=== PATIENT | female | born 1950 | race Caucasian/White ===

== ENCOUNTER 2022-11-08 11:37 | Outpatient (REF) | payer MEDICARE, OTHER, SELFPAY ==
--- NOTE | ~2022-11-08 | CT_ITS ---
EXAMINATION: CT ABDOMEN AND PELVIS WITH CONTRAST CLINICAL INFORMATION: Hematuria. Rule out renal mass. COMPARISON: None available. TECHNIQUE: Multidetector volumetric images were obtained from the superior aspect of the liver through the pubic symphysis following IV administration 85 mL of Omnipaque 350 intravenous and oral contrast. Sagittal and coronal reformatted images were obtained on the technologist's workstation. Oral contrast: No This CT examination was performed using dose optimization techniques as appropriate, variously including the following: *Automated exposure control *Adjustment of mA and/or kV according to patient size (this includes techniques or standardized protocols for targeted exams where dose is matched to indication/reason for exam; i.e. extremities or head) *Use of iterative reconstruction technique DLP: 217 mGy-cm FINDINGS: LUNG BASES: The lung bases are clear. LIVER, GALLBLADDER, AND BILIARY TREE: The liver is normal in size, shape, and attenuation. There is a 3 mm hypodense lesion right hepatic lobe statistically a small cyst. No additional lesions seen. There is no intrahepatic ductal dilatation. The gallbladder is contracted. PANCREAS: Throughout the pancreas there are small hypodense lesions, question microcysts, measuring 2 mm and less. There is a larger 9 mm lesion in the head of the pancreas on axial image 28/3. SPLEEN: Unremarkable. ADRENAL GLANDS: Unremarkable. KIDNEYS AND URETERS: The kidneys are normal in size, shape, and attenuation. No hydronephrosis, hydroureter, or calculi seen. No perinephric stranding. There are bilateral multiple renal cysts. No enhancing renal mass seen. Bilateral extrarenal kidney pelvises are noted. BLADDER: The bladder is distended extending to the umbilicus. No bladder wall thickening seen. GASTROINTESTINAL TRACT: There is large amount of stool seen throughout the right colon. The small bowel loops are normal caliber. Appendix is not visualized. ABDOMINAL WALL: No significant hernia is appreciated. LYMPH NODES: Normal. VASCULAR: There is significant endoscopic calcification of abdominal aorta with aneurysmal dilatation of proximal abdominal aorta measuring 2.7 x 2.5 cm. There is posterior thrombus seen in the descending thoracic and proximal abdominal aorta. PELVIC VISCERA: The uterus is anteverted. There are multiloculated cystic mass with internal septation occupying the entire pelvis and extending into the mid abdomen almost up to the umbilicus. It measures 13.8 x 8.2 cm x 10 cm wide. 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 The mass obstructs the bladder outlet resulting in bladder distention. OSSEOUS STRUCTURES: No aggressive lytic or sclerotic process. There are degenerative disc changes L3-L4, L5-S1 disc levels with mild ventral spondylosis. There is dextroscoliosis of lumbar spine. CT/CT abdomen pelvis w IV con IMPRESSION: 1. Multiloculated cystic mass of pelvis are likely arising from the ovary. Differential diagnoses include serous or mucinous adenocarcinoma of the ovaries. Recommend MAINTENANCE MACHINE REPAIRER consultation. 2. Moderate constipation. Without obstruction. 3. Bilateral renal cysts. No radiopaque calculi. There are bilateral extra renal kidney pelvises. 4. Multiple small microcysts of the pancreas with a 9 mm cyst in the head of the pancreas. Recommend MRI pancreas with and without contrast. 5. Aneurysmal dilatation of proximal abdominal aorta and descending thoracic aorta. Results were called by phone to Dr. David Willett at 10:05 AM today Fleischner guidelines were followed.
--- NOTE | 2022-11-08 14:40 | CA_ITS ---
Transthoracic Echocardiogram Patient (Last, First, Middle): Kristan Wallace, Gender: Female Date of : 1950 Age: 72 Procedure Date: 11/08/2022 Procedure Type: Transthoracic Echocardiogram Location: OP Height: 149.86 cm Weight: 45.36 kg BSA: 1.37 m2 Heart Rate: 57 bpm Sql Report Writer: LOUISA Referring MD: Brennon Hernandez MD Paint Department Supervisor: Leopoldo Davidson MD Symptoms: [place] Study Quality: Adequate ECG Rhythm: Bradycardia Conclusions: - 1. Normal LV systolic function with LVEF of 55-60% with pseudonormal filling pattern 2. At least moderately dilated left atrium 3. Thickened mitral valve with restricted posterior leaflet with at least moderately severe mitral regurgitation which could be underestimated due to eccentric jet 4. Mildly elevated right ventricular systolic pressure 5. No gross pericardial effusion Findings Left Ventricle Normal left ventricular size, thickness, and systolic function. The visually estimated ejection fraction is between 55-60%. Spectral Doppler is indicative of a pseudonormal filling pattern. Peak GLS is -15.6%, which is reduced. Right Ventricle Normal right ventricular cavity size and systolic function. Atria The left atrium is moderately dilated. There is no evidence of interatrial shunt. The right atrium is likely dilated. Aortic Valve The aortic valve structure and function is likely normal. There is no aortic valve stenosis. There is no aortic valve regurgitation. Mitral Valve There is mild anterior and severe posterior mitral leaflet thickening. The posterior mitral leaflet has restricted mobility. There is moderate to severe mitral valve regurgitation. The mitral regurgitation jet is directed anteriorly. There is no mitral valve stenosis. Pulmonic Valve The pulmonic valve is likely normal. Tricuspid Valve Likely normal tricuspid valve structure and function. There is mild tricuspid valve regurgitation. Normal right atrial pressure. Mild pulmonary hypertension is present. Great Vessels All visible segments of the aorta are normal in size. The pulmonary artery was not well visualized. Venous The inferior vena cava is normal in size and collapses greater than 50% with inspiration. Pericardium/Pleural There is no evidence of pericardial effusion. Measurements 2D Linear Measurements IVSd: 1.11 0.6-0.9/0.6-1.0 cm LVIDd: 5.26 3.9-5.3/4.2-5.9 cm LVIDd Index: 3.84 2.4-3.2/2.2-3.1 cm/m2 LVIDs: 3.54 2.0-3.6 cm LVPWd: 0.57 0.7-1.1 cm LA Diam: 4.40 2.7-3.8/3.0-4.0 cm LAIDs Index: 3.21 1.5-2.3 cm/m2 LV Mass: 196.57 67-162/88-224 g LV Mass Index: 143.48 43-95/49-115 g/m2 LVOT Diam: 1.90 3.0+(-)1.3 cm 2D Systolic Function EF 4C: 60.00 >55% EF 2C: 55.80 >55% EF BiP: 57.70 >55% Mitral Valve MV VTI: 0.40 MV Pk Anselmo: 1.72 MV Mn Anselmo: 0.61 MV Pk Grad: 12.00 MV Mn Grad: 2.00 MV Pk E: 1.52 MV PK A: 0.67 MV Decel Time: 141.00 E/A: 2.30 E'Lateral: 4.35 E'Medial: 5.11 E/E' Med: 29.70 E/E' Lat: 34.90 PHT: 41.00 MVA PHT: 5.37 MVA Continuity: 0.80 Decel Forest: 10.78 MR Vol - PW Dopp: 79.80 MR VTI: 1.40 MR ERO: 57.00 MR Alias Anselmo: 0.39 MR RAD: 1.00 Aortic Valve AoV Pk Anselmo: 1.14 AoV Mn Anselmo: 0.69 AoV VTI: 0.19 AoV Pk Grad: 5.00 Aov Mn Grad: 2.00 SONIA Cont.VTI: 1.42 LVOT LVOT Pk Anselmo: 0.62 LVOT Mn Anselmo: 0.39 LVOT VTI: 0.11 LVOT Pk Grad: 2.00 LVOT Mn Grad: 1.00 LVOT Diam: 1.90 LVOT Area: 2.84 Diastolic Function MV Pk E: 1.52 MV Pk A: 0.67 E/A: 2.30 E'Medial: 5.11 E/E' Med: 29.70 E' Laterial: 4.35 E/E' Lat: 34.90 Right Ventricle TAPSE (mm): 18.20 TVS' Anselmo: 8.27 Tricuspid Valve TR Pk Anselmo: 3.11 TR Pk Grad: 39.00 RA Press: 3.00 RVSP: 42.00 Great Vessels Aorta Sinus of Valsalva: 2.80 2.0-3.5 cm Ao Asc: 3.00 2.1-3.4 cm Pulmonary Valve PV Pk Anselmo: 0.75 Peak PV Grad: 2.00 Updated in Other Vendor System with Status of Final Leopoldo Davidson MD electronically signed on 11/08/2022 4:50:09 PM with status of Final
[2022-11-08] MEDS: Barium Sulfate Oral (Berry) 450 ML ORAL.SUSP 900 ML PO (14:42)
[2022-11-08] MEDS: iohexoL 350 MG/ML 100 ML INFUS..BTL 85 ML IV (14:43)
== END 2022-11-08 11:38 | disposition home or self-care (01) ==
LOC: HO.CT 11:37
PROVIDERS: PCP Internal Medicine; Visit Provider Internal Medicine
DX: R01.1 Cardiac murmur, unspecified (principal); R10.12 Left upper quadrant pain
CPT/HCPCS: 74177; 93306; 93356; Q9967

== ENCOUNTER → 2022-11-20 09:55 | Outpatient (BNVA) | payer MEDICARE, OTHER, SELFPAY | PROVIDERS: PCP Internal Medicine; Referring Provider Internal Medicine; Visit Provider Internal Medicine Cardiovascular Disease | DX: R07.9 Chest pain, unspecified (principal); R09.89 Other specified symptoms and signs involving the circulatory and respiratory systems; I25.10 Atherosclerotic heart disease of native coronary artery without angina pectoris; I10 Essential (primary) hypertension; I34.0 Nonrheumatic mitral (valve) insufficiency; Z95.1 Presence of aortocoronary bypass graft; Z96.0 Presence of urogenital implants; Z98.890 Other specified postprocedural states | CPT/HCPCS: 93005; 99202 ==

== ENCOUNTER → 2022-12-17 08:38 | Outpatient (REF) | payer MEDICARE, OTHER, SELFPAY ==
--- NOTE | ~2022-12-17 | NM_ITS ---
EXERCISE MYOCARDIAL PERFUSION STUDY INDICATION: Coronary disease, history of bypass surgery, mitral regurgitation TECHNIQUE: The patient was brought in for an exercise perfusion study on 12/17/2022. Patient performed exercise as per Brock protocol and was injected 25 mCi of sestamibi once target heart rate was achieved. Images were obtained using the SPECT gamma camera interlaced with the gating device. Images were obtained in supine position. Resting perfusion study was performed on 12/19/2022. Patient was administered 25 mCi of sestamibi intravenously at rest. Images were then obtained in supine position. Images were processed with the software and compared side to side in short axis, horizontal long axis and vertical long axis views. Total DLP 73mGy-cm. FINDINGS: Raw images were reviewed. The stress perfusion study showed diminished tracer uptake along the inferior wall, adjacent parts of inferior septum and inferolateral wall. Mostly towards the basal part. No significant change with CT attenuation correction. The gated study shows normal LV systolic function with calculated LVEF of 67%. LV cavity is normal in size. The gated study shows reduced contractility in the basal part of inferior/inferolateral wall. Resting study shows diminished tracer uptake in the basal part of inferior/inferolateral wall as well as adjacent parts of inferior septum. No significant change with CT attenuation correction. Gating at rest reveals reduced contractility in the basal inferolateral wall and basal septum with LVEF of 68%. The findings are consistent with no reversible defects. Fixed perfusion defect in the basal part of inferior wall, inferolateral wall and adjacent inferior septum. NM/NM cardiolite stress test IMPRESSION: 1. Myocardial perfusion imaging study shows no ischemia. 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 2. Gated LVEF is 67% during stress and 68% during rest. 3. Transient ischemic dilatation not present. EKG component of the test reported separately.
--- NOTE | 2022-12-17 08:42 | CA_ITS ---
Acquisition Time: 2022-12-17 09:05:47 Total Exercise Time: 00:04:31 Test Indications: ABN ECHO Medications: SEE H Protocol: GRISELDA Max HR: 144 BPM 98% of Pred: 146 BPM Max BP: 132/084 mmHG Max Work Load: 5.8 METS Exercise stress test with exercise 4 min 31 sec of Griselda protocol, achieving > 85% MPHR, with moderate sob, no chest discomfort, with frequent PVCs, ventriculary bigeminy through most of test, occassional ventricular cuplets, with normotensive response to exercise, with nondiagnostic EKG due to baseline abnormality and difficult to assess in setting of frequent ventricular ectopy. Nuclear images pending. Test reviewed with Dr Davidson Referred By: Leopoldo Davidson Overread By: KURTIS NARANJO
== END ==
LOC: HO.CARD 08:38
PROVIDERS: PCP Internal Medicine; Visit Provider Internal Medicine Cardiovascular Disease
DX: R07.9 Chest pain, unspecified (principal); I25.10 Atherosclerotic heart disease of native coronary artery without angina pectoris
CPT/HCPCS: 78452; 93017; A9500; J0280; J2785

== ENCOUNTER 2023-04-15 11:23 | Outpatient (REF) | payer MEDICARE, OTHER, SELFPAY ==
--- NOTE | ~2023-04-15 | CT_ITS ---
EXAMINATION: CT CHEST WITH CONTRAST CLINICAL INFORMATION: Follow up septic pulmonary emboli. COMPARISON: None available. TECHNIQUE: Multidetector volumetric CT imaging of the chest was obtained after the administration of 85 mL of Omnipaque 350 intravenous contrast without immediate adverse reactions. Axial MIP volume rendering provided. Sagittal and coronal reformatted images were obtained. This CT examination was performed using dose optimization techniques as appropriate, variously including the following: *Automated exposure control *Adjustment of mA and/or kV according to patient size (this includes techniques or standardized protocols for targeted exams where dose is matched to indication/reason for exam; i.e. extremities or head) *Use of iterative reconstruction technique DLP: 140 mGy-cm. FINDINGS: LUNGS: Biapical pleural and parenchymal scarring. Severe emphysema. Mild focal bronchiectasis and peribronchial increased attenuation in the right upper lobe, axial image 105 series 7. Cystic and reticular changes in the posterior segment of the right upper lobe with more posteroinferior focal cyst wall thickening, for example axial image 134 series 7. This area measures approximately 2.5 cm in dimension. Right lower lobe bronchiectasis. Scarring or subsegmental atelectasis at the right lung base. MEDIASTINUM: Enlarged heart. No pericardial effusion. Post-CABG changes. Severe atherosclerotic disease of the thoracic aorta with plaque descending thoracic aorta. Aorta upper normal in size. No enlarged hilar or mediastinal lymph nodes. No pulmonary embolism. PLEURA: There is no pleural effusion. No pleural mass or thickening. Small right posterior diaphragmatic hernia containing fat. AXILLA: No lymphadenopathy. UPPER ABDOMEN: See abdominal and pelvic CT report from the same day. OSSEOUS STRUCTURES: Degenerative changes of the spine. CT/CT chest w IV con IMPRESSION: 1. No pulmonary embolus. Enlarged heart and post-CABG changes. Severe atherosclerotic disease with significant plaque in the descending thoracic aorta. 2. Severe emphysema. Focal bronchiectasis and increased peribronchial attenuation in the right upper lobe. Heterogeneous mixed cystic and reticular area in the right upper lobe measuring 2.[address] followup in 6-12 months recommended. Fleischner guidelines were followed.
--- NOTE | ~2023-04-15 | CT_ITS ---
EXAMINATION: CT ABDOMEN AND PELVIS WITH CONTRAST CLINICAL INFORMATION: Septic pulmonary emboli. Weight loss. COMPARISON: Previous CT of the abdomen and pelvis October 2022 TECHNIQUE: Multidetector volumetric images were obtained from the superior aspect of the liver through the pubic symphysis following administration 85 mL of Omnipaque 350 intravenous contrast. Sagittal and coronal reformatted images were obtained on the technologist's workstation. Oral contrast: Yes This CT examination was performed using dose optimization techniques as appropriate, variously including the following: *Automated exposure control *Adjustment of mA and/or kV according to patient size (this includes techniques or standardized protocols for targeted exams where dose is matched to indication/reason for exam; i.e. extremities or head) *Use of iterative reconstruction technique DLP: 217 mGy-cm FINDINGS: LUNG BASES: The visualized lung bases are unremarkable. LIVER, GALLBLADDER, AND BILIARY TREE: There is heterogeneous enhancement of the liver. Several small liver cysts largest measuring 4 mm in the right lobe. Contracted gallbladder. Probable gallstone. No biliary duct dilatation. PANCREAS: Multiple cysts in the pancreas. Largest measures 1 cm in the uncinate process of the head of the pancreas. This does not appear appreciably changed. The main pancreatic duct does not appear dilated. SPLEEN: Unremarkable. ADRENAL GLANDS: Unremarkable. KIDNEYS AND URETERS: Bilateral renal cysts. No imaging follow-up recommended. BLADDER: Not optimally distended. Question mild diffuse bladder wall thickening. GASTROINTESTINAL TRACT: Constipation. Small and large bowel is otherwise normal. The appendix is normal. ABDOMINAL WALL: No significant hernia is appreciated. LYMPH NODES: Normal. VASCULAR: Severe atherosclerotic disease with extensive plaque in the thoracic and upper abdominal aorta. Severe stenosis of the distal aorta. Stenoses of the bilateral common iliac arteries. 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 Moderate stenosis at the origin of the SMA. JAVI not seen. Right renal artery stent. I lateral abdominal wall collateral vessels. PELVIC VISCERA: Uterus has been removed. Cystic pelvic masses no longer seen. No ascites. OSSEOUS STRUCTURES: Degenerative changes of the spine and scoliosis. Mild degenerative changes at the hip joints. CT/CT abdomen pelvis w IV con IMPRESSION: Severe atherosclerotic disease. Significant plaque in the distal descending thoracic aorta and upper abdominal aorta. Severe stenosis of the distal abdominal aorta and bilateral common iliac arteries. 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 Constipation. Stable small liver and pancreatic cysts. Heterogeneous enhancement of the liver. Probable gallstones. Stable pancreatic cysts, largest measuring 1 cm in the head of the pancreas. Fleischner guidelines were followed.
[2023-04-15] MEDS: iohexoL 350 MG/ML 100 ML INFUS..BTL 85 ML IV (14:28)
== END 2023-04-15 11:24 | disposition home or self-care (01) ==
LOC: HO.CT 11:23
PROVIDERS: PCP Internal Medicine; Visit Provider Internal Medicine
DX: R63.4 Abnormal weight loss (principal); I26.90 Septic pulmonary embolism without acute cor pulmonale
CPT/HCPCS: 71260; 74177; Q9967

== ENCOUNTER 2023-04-18 14:22 | Outpatient (AMB) | payer MEDICARE, OTHER, SELFPAY ==
--- NOTE | 2023-04-18 14:23 | MHC.OFFVIS ---
Intake Vital Signs 04/18/23 14:34 Height 5 ft Weight 90 lb 8 oz BMI 17.7 BP 125/70 Blood Pressure Location Lt brachial Position Sitting Pulse 65 Intake Visit Reasons: lesion of the lip, poss bx ? CA Intake Note: Patient is seen in office for evaluation and treatment of a lip lesion, possible bx for CA. Patient c/o: onset one year, denies increase, pain, itchy, discharge, redness or other concerns Unified Communications Architect Required: No Accompanied by: Self / Same As Patient Allergies No Known Allergies Allergy (Verified 04/18/23 14:31) Medication List - Last Reconciled 04/19/23 by Bennie Seo MD alendronate 70 mg PO QWEEK amlodipine 10 mg PO DAILY apixaban (Eliquis) 2.5 mg PO BID atorvastatin 80 mg PO DAILY clopidogrel 75 mg PO DAILY enalapril maleate 20 mg PO DAILY furosemide 40 mg PO DAILY isosorbide mononitrate ER 30 mg PO DAILY metoprolol succinate ER 100 mg PO DAILY HPI HPI Comments History of Present Illness Details 73-year-old female patient presenting with a left upper lip skin lesion which is been present for approximately 1 year. She denies any injury to this location and feels the lesion is suddenly appeared. She denies any significant changes in the size of the lesion for the past year. She denies bleeding, discharge, pain from the site. She presents today to discuss possible biopsy. Patient has a history of coronary artery disease and previously underwent stent placement. She is currently on Eliquis. [facility] Medical History CAD (coronary artery disease) History of stent insertion of renal artery HTN (hypertension) Hyperlipidemia Surgical History History of cardiac cath History of total hysterectomy (12/2022) S/P CABG x 5 Family History Father CAD (coronary artery disease) Mother No problems noted. Sister Breast cancer Social History Alcohol intake: never Patient Tobacco Use Status: Former Tobacco user Review of Systems Const All systems reviewed & are unremarkable except as noted in HPI and below Card Denies chest pain and Reports dyspnea Resp Reports dyspnea Skin/Breast Reports as per HPI Physical Exam Vital Signs: Last Vital Signs Pulse 65 04/18/23 14:34 BP 125/70 04/18/23 14:34 BMI result Body Mass Index 17.7 Const General: cooperative and no acute distress Nutritional Appearance: thin Orientation/consciousness: patient oriented x3 HEENT Other: Head images: 1. 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 Lesion is suggestive of a squamous cell carcinoma therefore wide excision is recommended. After discussion of the procedure, risks, and alternatives, she consents to surgery. This will be scheduled at her earliest convenience. She reports that she is awaiting cataract surgery. Surgery should be performed soon after that. Ideally she would be off her anticoagulation prior to surgery to limit bleeding complications. Coding Level of Care Code New Pt Level 4 (99807) Diagnoses Skin lesion of face L98.9
[2023-04-18 14:34] VITALS: BP 125/70; PULSE 65; BMI 17.7
== END 2023-04-18 14:57 | disposition home or self-care (01) ==
PROVIDERS: PCP Internal Medicine; Referring Provider Internal Medicine; Visit Provider Surgery
DX: L98.9 Disorder of the skin and subcutaneous tissue, unspecified (principal)
CPT/HCPCS: 99204

== ENCOUNTER → 2023-04-18 14:22 | Outpatient (BNVA) | payer MEDICARE, OTHER, SELFPAY | PROVIDERS: PCP Internal Medicine; Referring Provider Internal Medicine; Visit Provider Surgery | DX: L98.9 Disorder of the skin and subcutaneous tissue, unspecified (principal) | CPT/HCPCS: 99202 ==

== ENCOUNTER 2023-11-25 10:26 | Outpatient (AMB) | payer MEDICARE, OTHER, SELFPAY ==
--- NOTE | 2023-11-25 10:32 | A.OFFVIS_ITS ---
Intake Vital Signs 11/25/23 10:35 Height 5 ft Weight 90 lb 6.232 oz BMI 17.7 BP 110/70 Blood Pressure Location Lt brachial Position Sitting Pulse 51 Intake Visit Reasons: 1 YR F/UP S/P ECHO Intake Note: 1 year follow-up with ekg has not had echo yet feeling good [facility] Nurse Required: No Allergies No Known Allergies Allergy (Verified 04/18/23 14:31) Medication List - Last Reconciled 11/25/23 by Leopoldo Davidson MD alendronate 70 mg PO QWEEK amlodipine 10 mg PO DAILY atorvastatin 80 mg PO DAILY enalapril maleate 20 mg PO DAILY furosemide 40 mg PO DAILY isosorbide mononitrate ER 30 mg PO DAILY metoprolol succinate ER 100 mg PO DAILY HPI HPI Comments History of Present Illness Details Maura comes for follow-up. She has been doing well from cardiac perspective. She underwent gynecologic surgery last year and is doing well from that perspective. Post surgery she developed a pulmonary embolism was treated for it for few months with oral anticoagulation therapy. Since then she has been off it but also off aspirin and Plavix therapy. She has currently not having any cardiac symptoms. Denies any exertional chest pain or shortness of breath. Denies any orthopnea, PND, leg edema, palpitations. Takes all her medications regularly. She maintains her activity of day-to-day living without any issues. No recent echocardiogram was performed. Denies any lightheadedness, syncope. [facility] Medical History CAD (coronary artery disease) History of stent insertion of renal artery HTN (hypertension) Hyperlipidemia Surgical History History of cardiac cath History of total hysterectomy (12/2022) S/P CABG x 5 Family History Father CAD (coronary artery disease) Mother No problems noted. Sister Breast cancer Social History Alcohol intake: never Patient Tobacco Use Status: Former Tobacco user Review of Systems Const Denies chills, Denies fatigue, Denies fever(s), Denies frequent falls, Denies weakness, Denies weight gain and Denies weight loss ENT Denies dizziness Card Denies chest pain, Denies leg edema, Denies lightheadedness, Denies palpitations, Denies dyspnea, Denies dyspnea on exertion, Denies orthopnea and Denies other (loss of consciousness) Resp Denies cough, Denies dyspnea and Denies dyspnea on exertion GI Denies hematochezia and Denies change in stool character Musc Denies abnormal gait, Denies muscle weakness, Denies numbness, Denies radiating pain into limb and Denies tingling Neuro Denies Abnormal speech present, Denies abnormal gait, Denies dizziness, Denies frequent falls, Denies numbness, Denies tingling and Denies weakness Endo Denies fatigue and Denies palpitations Physical Exam Vital Signs: Last Vital Signs Pulse 51 11/25/23 10:35 BP 110/70 11/25/23 10:35 BMI result Body Mass Index 17.7 Const General: cooperative, comfortable, no acute distress, alert, awake, Physically active and well groomed Nutritional Appearance: thin Orientation/consciousness: patient oriented x3 Limitations: no limitations HEENT Head: Yes normocephalic and Yes atraumatic Neck Neck: Yes trachea midline, Yes supple and Yes no JVD Carotids: bruit bilateral Resp Effort & Inspection: normal respiratory effort Auscultation: clear to auscultation bilaterally and diminished lung sounds Cardio Jugular venous distension: no JVD Palpation: normal PMI Rate: regular rate Rhythm: abnormal rhythm with ectopic beats Heart sounds: S1 normal heart sound present, S2 normal heart sound present, no click, no gallops and Murmur heart sound present systolic holo, harsh and other (Throughout) Peripheral pulses: other (Diminished bilateral dorsalis pedis) GI Auscultation: normal bowel sounds Skin General skin exam: no rashes or lesions noted Neuro General: patient oriented x3 and no focal motor deficits Speech: No Abnormal speech present Extrem General: Yes no clubbing, cyanosis or edema Office Procedures EKG Details: EKG shows sinus bradycardia 51 beats per minute with left atrial enlargement with incomplete right bundle-branch block with left ventricular hypertrophy with repolarization abnormality [id number], Complete Assessment & Plan Assessment & Plan (1) CAD (coronary artery disease): Comment: Asymptomatic leading to coronary artery bypass grafting Code(s): I25.10 - Atherosclerotic heart disease of [place] coronary artery without angina pectoris Plan: CAD with remote coronary bypass grafting with myocardial perfusion imaging last year showing no evidence of ischemia. This carries good prognosis. Recheck in 4 years' time. Continue aggressive medical therapy. Aspirin is absolutely essential and this was discussed with her. Restart low-dose aspirin therapy. Continue aggressive vascular risk factor modification. Currently on atorvastatin 80 mg daily and goal LDL should be closer to 60 mg/dL. Will obtain lab work from your office. Blood pressure is currently well optimized advised to monitor blood pressure at home maintain a log. Goal blood pressure less than 130/80. Advised to call me with any new symptoms of angina or heart failure. (2) Mitral regurgitation: Code(s): I34.0 - Nonrheumatic mitral (valve) insufficiency Plan: Mitral regurgitation which appears clinically moderately severe to severe. She has having no symptoms related to it. Importance of annual echocardiogram to evaluate for LV size and systolic function should be pursued as well as to evaluate for evidence of development of pulmonary hypertension. This was discussed with her. Will schedule in near future. Aspirin therapy as above. Currently no interventions required except for aggressive medical therapy including vasodilators therapy as prescribed. Will follow up in the clinic in 1 year's time, sooner p.r.n.. Thank you for allowing me to partake in her care Orders: Orders CA echo transthoracic complete Today I34.0 - Nonrheumatic mitral (valve) insufficiency Medications: New aspirin (Ecotrin Low Strength) 81 mg PO DAILY 30 tabs 5RF Coding Level of Care Code Est Pt Level 4 (46262) Diagnoses CAD (coronary artery disease) I25.10 Mitral regurgitation I34.0 CPT Codes EKG - CPT: 38383-[id number], Complete ([id number])
[2023-11-25 10:35] VITALS: BP 110/70; PULSE 51; BMI 17.7
== END 2023-11-25 11:00 | disposition home or self-care (01) ==
PROVIDERS: Visit Provider Internal Medicine Cardiovascular Disease
DX: I25.10 Atherosclerotic heart disease of native coronary artery without angina pectoris (principal); I34.0 Nonrheumatic mitral (valve) insufficiency
CPT/HCPCS: 93010; 99214

== ENCOUNTER → 2023-11-25 10:26 | Outpatient (BNVA) | payer MEDICARE, OTHER, SELFPAY | PROVIDERS: Visit Provider Internal Medicine Cardiovascular Disease | DX: I25.10 Atherosclerotic heart disease of native coronary artery without angina pectoris (principal); I34.0 Nonrheumatic mitral (valve) insufficiency | CPT/HCPCS: 93005; 99212 ==

== ENCOUNTER → 2023-12-17 14:49 | Outpatient (REF) | payer MEDICARE, OTHER, SELFPAY ==
--- NOTE | 2023-12-17 14:51 | CA_ITS ---
Transthoracic Echocardiogram Patient (Last, First, Middle): Maura Wallace, Gender: Female Date of : 1950 Age: 73 Procedure Date: 12/17/2023 Procedure Type: Transthoracic Echocardiogram Location: OP Height: 152.4 cm Weight: 41.28 kg BSA: 1.34 m2 Heart Rate: bpm BP: 100 / 66 mmHg Component Technician: HAYLEE Referring MD: Leopoldo Davidson MD Symptoms: I34.0 - Nonrheumatic mitral (valve) insufficiency Study Quality: Adequate ECG Rhythm: Sinus Conclusions: - The left ventricular systolic function is normal. The calculated ejection fraction is 65% by biplane method. - The inferolateral wall is akinetic. - Posterior leaflet appears to have some restriction and also prolapsing. Moderate to severe mitral regurgitation. Findings Left Ventricle Normal left ventricular cavity size. The left ventricular systolic function is normal. The calculated ejection fraction is 65% by biplane method. There is no evidence of regional wall motion abnormalities. There is mild septal asymmetric hypertrophy. LV peak GLS -20.6%. Wall Motion Rest Echo Findings The inferolateral wall is akinetic. Right Ventricle Normal right ventricular cavity size. There is low normal right ventricular systolic function. Atria The left atrium is severely dilated. The right atrium is mildly dilated. Aortic Valve There is a normal trileaflet aortic valve. There is no aortic valve stenosis. There is no aortic valve regurgitation. Mitral Valve There is mild mitral annular calcification. There is no mitral valve stenosis. Posterior leaflet appears to have some restriction and also prolapsing. Moderate to severe mitral regurgitation. Pulmonic Valve The pulmonic valve is likely normal. Tricuspid Valve There is mild tricuspid valve regurgitation. Mild pulmonary hypertension is present. Great Vessels The asc aorta is normal in size. Large plaque is seen in the sino tubular ridge. Venous The inferior vena cava is mildly dilated and collapses greater than 50% with inspiration. Pericardium/Pleural There is no evidence of pericardial effusion. Prior Study Comparison No significant change compared to prior study dated: 11/08/2022. (wall motion findings seen in prior images). Measurements 2D Linear Measurements IVSd: 1.08 0.6-0.9/0.6-1.0 cm LVIDd: 4.75 3.9-5.3/4.2-5.9 cm LVIDd Index: 3.54 2.4-3.2/2.2-3.1 cm/m2 LVIDs: 3.16 2.0-3.6 cm LVPWd: 0.72 0.7-1.1 cm LA Diam: 3.70 2.7-3.8/3.0-4.0 cm LAIDs Index: 2.76 1.5-2.3 cm/m2 LV Mass: 181.19 67-162/88-224 g LV Mass Index: 135.22 43-95/49-115 g/m2 LVOT Diam: 1.90 3.0+(-)1.3 cm 2D Systolic Function EF 4C: 59.10 >55% EF 2C: 69.80 >55% EF BiP: 64.80 >55% Mitral Valve MV VTI: 0.49 MV Pk Anselmo: 1.58 MV Mn Anselmo: 0.63 MV Pk Grad: 10.00 MV Mn Grad: 2.00 MV Pk E: 1.49 MV PK A: 0.86 MV Decel Time: 200.00 E/A: 1.70 E'Lateral: 8.59 E'Medial: 6.09 E/E' Med: 24.50 E/E' Lat: 17.30 PHT: 58.00 MVA PHT: 3.79 MVA Continuity: 1.11 Decel Bibb: 7.47 MR Vol - PW Dopp: 109.20 MR VTI: 1.40 MR ERO: 78.00 MR Alias Anselmo: 0.39 MR RAD: 1.20 Aortic Valve AoV Pk Anselmo: 1.22 AoV Mn Anselmo: 0.84 AoV VTI: 0.25 AoV Pk Grad: 6.00 Aov Mn Grad: 3.00 SONIA Cont.VTI: 2.21 LVOT LVOT Pk Anselmo: 0.89 LVOT Mn Anselmo: 0.55 LVOT VTI: 0.19 LVOT Pk Grad: 3.00 LVOT Mn Grad: 1.00 LVOT Diam: 1.90 LVOT Area: 2.84 Diastolic Function MV Pk E: 1.49 MV Pk A: 0.86 E/A: 1.70 E'Medial: 6.09 E/E' Med: 24.50 E' Laterial: 8.59 E/E' Lat: 17.30 Right Ventricle TAPSE (mm): 17.90 TVS' Anselmo: 9.36 Tricuspid Valve TR Pk Anselmo: 2.90 TR Pk Grad: 34.00 RA Press: 8.00 RVSP: 42.00 Great Vessels Aorta Sinus of Valsalva: 3.00 2.0-3.5 cm Ao Asc: 3.10 2.1-3.4 cm Updated in Other Vendor System with Status of Final Jose Antonio Talbert MD electronically signed on 12/19/2023 4:51:36 PM with status of Final
== END ==
LOC: HO.CARD 14:49
PROVIDERS: PCP Internal Medicine; Visit Provider Internal Medicine Cardiovascular Disease
DX: I34.0 Nonrheumatic mitral (valve) insufficiency (principal)
CPT/HCPCS: 93306; 93356

== ENCOUNTER → 2023-12-17 14:51 | Outpatient (BNV) | payer MEDICARE, OTHER, SELFPAY | PROVIDERS: PCP Internal Medicine; Visit Provider Internal Medicine | DX: I34.1 Nonrheumatic mitral (valve) prolapse (principal); I34.0 Nonrheumatic mitral (valve) insufficiency; I34.81 Nonrheumatic mitral (valve) annulus calcification; I36.1 Nonrheumatic tricuspid (valve) insufficiency | CPT/HCPCS: 93306; 93356 ==

== ENCOUNTER 2024-05-15 10:47 | Outpatient (AMB) | payer MEDICARE, OTHER, SELFPAY ==
--- NOTE | 2024-05-15 10:50 | A.OFFVIS_ITS ---
Vital Signs 3 05/15/24 10:58 Height 5 ft Weight 87 lb BMI 17.0 BP 124/69 Blood Pressure Location Lt brachial Position Sitting Pulse 61 Intake Visit Reasons: lip lesion Intake Note: Patient is seen in office for follow up visit, following lip lesion. Pt c/o: is here to discuss, lip lesion removal, was not able to schedule sooner due to hysterectomy, cataract and dental surgery L>OV:04/18/23 [employer] Required: No Accompanied by: Self / Same As Patient Allergies No Known Allergies Allergy (Verified 05/15/24 10:51) HPI Comments Details: 74-year-old female patient returning for re-evaluation of a left upper lip skin lesion. She was previously evaluated on 04/18/2023 at which time the lesion has been present for a proximally 1 year. Since this time she has had multiple surgeries including hysterectomy, cataract surgery and dental surgery. She returns today for rediscussion regarding excision of this lip lesion. She denies any current symptoms associated with the lesion although does feel the lesion has increased in size since her last visit. She denies any bleeding or discharge at this time. She is currently off any anticoagulation is currently only on low-dose aspirin. [facility] Medical History Hyperlipidemia HTN (hypertension) History of stent insertion of renal artery CAD (coronary artery disease) Surgical History History of dental surgery Hx of cataract surgery Hx of hysterectomy History of total hysterectomy (12/2022) S/P CABG x 5 History of cardiac cath Family History Father CAD (coronary artery disease) Mother No problems noted. Sister Breast cancer Social History Alcohol intake: never Patient Tobacco Use Status: Former Tobacco user Review of Systems Const All systems reviewed & are unremarkable except as noted in HPI and below Card Denies chest pain and Reports dyspnea Resp Reports dyspnea Skin/Breast Reports as per HPI Physical Exam Const General: cooperative and no acute distress Nutritional Appearance: thin Orientation/consciousness: patient oriented x3 HEENT Other: Lesion now measures approximately 12 mm diameter located in the left upper lip. It extends into the subcutaneous tissue but not onto the oral mucosa. No ulceration or bleeding was identified. 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 She was previously evaluated on 04/18/2023 at which time excision was recommended. She was subsequently undergone several other surgeries including hysterectomy, cataract surgery and oral surgery. She wishes to proceed with this skin lesion which appears to be a skin neoplasm. The lesion has increased in size several mm which may make it more difficult to excise however I would recommend proceeding with the excision at the earliest possible time. I reviewed the procedure, risks and benefits in detail and she wishes to proceed with the surgery. She gives her consent. This will be scheduled as a short-stay surgery under monitored anesthesia care. Coding Level of Care Code Est Pt Level 4 (31689) Diagnoses Skin lesion of face L98.9
[2024-05-15 10:58] VITALS: BP 124/69; PULSE 61; BMI 17.0
== END 2024-05-15 11:28 | disposition home or self-care (01) ==
PROVIDERS: PCP Internal Medicine; Visit Provider Surgery
DX: L98.9 Disorder of the skin and subcutaneous tissue, unspecified (principal)
CPT/HCPCS: 99214

== ENCOUNTER → 2024-05-15 10:47 | Outpatient (BNVA) | payer MEDICARE, OTHER, SELFPAY | PROVIDERS: PCP Internal Medicine; Visit Provider Surgery | DX: L98.9 Disorder of the skin and subcutaneous tissue, unspecified (principal) | CPT/HCPCS: 99212 ==

== ENCOUNTER 2024-06-10 10:50 | Day surgery (SDC) | payer MEDICARE, OTHER, SELFPAY ==
[2024-06-08 15:44] VITALS: BMI 17.0
--- NOTE | 2024-06-09 09:10 | HO.ANESPROP2 ---
HPI - Anesthesia Eval Consult details Narrative: 74yo F for Left Excision of Large Neoplasm Lesion Upper Lip [place] [facility] [place] s/p CABG x 5 2004, Mod to severe Mitral regurg. Sees yearly, stable when last eval 11/2023. Asymptomatic. Optimized for surgery/anesthesia per workload message. [facility] Active Problems Active Problems: All Active Problems Skin lesion of face (Acute) Hyperlipidemia (Acute) HTN (hypertension) (Acute) Mitral regurgitation (Acute) Bilateral carotid bruits (Acute) CAD (coronary artery disease) (Acute) Past Medical History Medical History Hyperlipidemia HTN (hypertension) History of stent insertion of renal artery CAD (coronary artery disease) Family History Family History Father CAD (coronary artery disease) Mother No problems noted. Sister Breast cancer Surgical History Surgical History History of dental surgery Hx of cataract surgery Hx of hysterectomy History of total hysterectomy (12/2022) S/P CABG x 5 History of cardiac cath Social History Social History Alcohol intake: never Patient Tobacco Use Status: Former Tobacco user Meds Allergies Allergy/AdvReac Type Severity Reaction Status Date / Time No Known Allergies Allergy Verified 06/10/24 11:52 Home Medications ?Medication ?Instructions ?Recorded ?Confirmed ?Last Taken ?Type alendronate 70 mg tablet 70 mg PO QWEEK 11/20/22 06/10/24 Unknown History amlodipine 10 mg tablet 10 mg PO DAILY 11/20/22 06/10/24 Unknown History enalapril maleate 20 mg tablet 20 mg PO DAILY 11/20/22 06/10/24 Unknown History furosemide 40 mg tablet 40 mg PO DAILY 11/20/22 06/10/24 Unknown History isosorbide mononitrate 30 mg 30 mg PO DAILY 11/20/22 06/10/24 Unknown History tablet,extended release 24 hr metoprolol succinate 100 mg 100 mg PO DAILY 11/20/22 06/10/24 Unknown History tablet,extended release 24 hr Exam Height,Weight and Vital Signs: Height 5 ft Weight 39.463 kg Narrative Narrative: EKG 11/2023 sinus bradycardia 51 beats per minute with left atrial enlargement with incomplete right bundle-branch block with left ventricular hypertrophy with repolarization abnormality ECHO 11/2023 Conclusions: - The left ventricular systolic function is normal. The calculated ejection fraction is 65% by biplane method. - The inferolateral wall is akinetic. - Posterior leaflet appears to have some restriction and also prolapsing. Moderate to severe mitral regurgitation. NM cardiolite stress test 12/2022 IMPRESSION: 1. Myocardial perfusion imaging study shows no ischemia. 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 2. Gated LVEF is 67% during stress and 68% during rest. 3. Transient ischemic dilatation not present. EKG component of the test reported separately. Assessment and Plan Assessment Anesthesia Assessment: Chart Reviewed
[2024-06-10] VITALS (10 sets, daily range): BP systolic 116–132; BP diastolic 69–82; PULSE 55–75; RESP 15–20; TEMP 36.1–36.4; O2SAT 91–99; BMI 16.8
--- NOTE | 2024-06-10 11:32 | HO.ANESPROP2 ---
[facility] Active Problems Active Problems: All Active Problems Skin lesion of face (Acute) Hyperlipidemia (Acute) HTN (hypertension) (Acute) Mitral regurgitation (Acute) Bilateral carotid bruits (Acute) CAD (coronary artery disease) (Acute) Past Medical History Medical History Hyperlipidemia HTN (hypertension) History of stent insertion of renal artery CAD (coronary artery disease) Functional capacity: independent ambulation Family History Family History Father CAD (coronary artery disease) Mother No problems noted. Sister Breast cancer Surgical History Surgical History History of dental surgery Hx of cataract surgery Hx of hysterectomy History of total hysterectomy (12/2022) S/P CABG x 5 History of cardiac cath Social History Social History Alcohol intake: never Patient Tobacco Use Status: Former Tobacco user Advance Directives: No Advance Directives Information Provided: Yes Meds Allergies Allergy/AdvReac Type Severity Reaction Status Date / Time No Known Allergies Allergy Verified 05/15/24 10:51 Home Medications ?Medication ?Instructions ?Recorded ?Confirmed ?Last Taken ?Type alendronate 70 mg tablet 70 mg PO QWEEK 11/20/22 11/25/23 Unknown History amlodipine 10 mg tablet 10 mg PO DAILY 11/20/22 11/25/23 Unknown History enalapril maleate 20 mg tablet 20 mg PO DAILY 11/20/22 11/25/23 Unknown History furosemide 40 mg tablet 40 mg PO DAILY 11/20/22 11/25/23 Unknown History isosorbide mononitrate 30 mg 30 mg PO DAILY 11/20/22 11/25/23 Unknown History tablet,extended release 24 hr metoprolol succinate 100 mg 100 mg PO DAILY 11/20/22 11/25/23 Unknown History tablet,extended release 24 hr Exam Height,Weight and Vital Signs: Height 5 ft Weight 39.463 kg
[2024-06-10] MEDS: Lactated Ringers 1,000 ML 100 ML IVCONT (12:32)
--- NOTE | 2024-06-10 12:48 | MHC.SHP ---
Pre-Procedural Eval Section A - 24 Hr Update-Section A only Date of Service: 06/10/24 The patient is an INPATIENT: No Changes since office visit: Yes Patient answered all questions; No Cold of Flu in the past 2 weeks, No New Medical Problems and No Changes in Medication The patient has been examined within 24 hours of the surgical procedure. The History & Physical has been completed within 30 days and I have reviewed it.: Yes Section B - Complete if H&P > 30 days Chief Complaint: Disorder of the skin and subcutaneous tissue, Allergies: Allergies Allergy/AdvReac Type Severity Reaction Status Date / Time No Known Allergies Allergy Verified 06/10/24 11:52 Plan Diagnosis/Plan: Unchanged I have reviewed the history and physical and performed a pertinent physical examination on my patient. No changes have occurred unless specified. Time Spent With Patient Time: Total time managing care of this patient today ____ minutes.
--- NOTE | 2024-06-10 13:47 | P.OP_ITS ---
Operative Note Operative Note Date of Service: 06/10/24 Narrative: Preoperative diagnosis: Skin neoplasm left upper lip Postoperative diagnosis: Same Procedure: Excision of skin neoplasm left upper lip Surgeon: Bennie Seo MD Machine Repair Person: None Anesthesia: General LMA Indications for procedure: 74-year-old female patient presenting with a large skin lesion in the left upper lip. On examination she has a 1 cm raised hard skin lesion which extends into the subcutaneous tissue and appears consistent with a skin neoplasm Operative findings: 1 cm raised hard skin lesion left upper lip Specimen: Skin lesion left upper lip Estimated blood loss: 2 cc Complications: None Procedure details: Patient was brought to the OR and placed in a supine position. After administering general anesthesia the patient's lip and face were prepped with Betadine and draped in a sterile fashion. A surgical time-out was called the consent confirmed. Patient received preoperative antibiotics and Venodyne boots were in place. Local anesthesia was infiltrated around the lesion in elliptical fashion. An elliptical incision was created oriented in a radial fashion from the lip and carried down through subcutaneous tissue. Electrocautery was used to dissected off the subcutaneous tissue. Hemostasis was assured using electrocautery. The lesion was marked for margins and passed off the table for pathologic evaluation. Wounds were irrigated with saline solution. Dermis was then reapproximated using interrupted 4-0 Polysorb sutures. Skin was then closed using interrupted 5 0 Prolene sutures. Bacitracin ointment was then applied. The patient tolerated the procedure well. Sponge, instrument, and needle counts reported as correct. The patient was transferred to PACU in stable condition.
--- NOTE | 2024-06-10 14:05 | HO.POSTANES ---
Post Anesthesia Evaluation Post Anesthesia Evaluation Date of Service: 06/10/24 Vital Signs: Vital Signs Temp Pulse Resp BP Pulse Ox O2 Del Method 06/10/24 13:58 97 F 63 16 132/82 99 Room Air 06/10/24 12:21 97.1 F 55 15 117/76 95 Room Air Anesthesia: General Endotracheal-GETA Mental Status: Awake Pain Control: Satisfactory Nausea/Vomiting: None Hydration: Adequate Anesthesia-Related Issues: No Anes. Related Issues
== END 2024-06-10 16:48 | disposition home or self-care (01) ==
PROVIDERS: PCP Internal Medicine; Visit Provider Surgery
PROC: (CPT 11641; principal; 2024-06-10 13:00)
DX: C44.01 Basal cell carcinoma of skin of lip (principal); I10 Essential (primary) hypertension; E78.5 Hyperlipidemia, unspecified; I25.10 Atherosclerotic heart disease of native coronary artery without angina pectoris; Z95.1 Presence of aortocoronary bypass graft; Z95.828 Presence of other vascular implants and grafts; Z79.899 Other long term (current) drug therapy; Z98.890 Other specified postprocedural states; Z87.891 Personal history of nicotine dependence
CPT/HCPCS: 11641; 88305; 88341; 88342; J0690; J1100; J2003; J2250; J2405; J2795; J3010

== ENCOUNTER → 2024-06-10 10:50 | Outpatient (BNV) | payer MEDICARE, OTHER, SELFPAY | PROVIDERS: PCP Internal Medicine; Visit Provider Surgery | DX: C44.01 Basal cell carcinoma of skin of lip (principal) | CPT/HCPCS: 11643 ==

== ENCOUNTER 2024-06-19 10:21 | Outpatient (AMB) | payer MEDICARE, OTHER, SELFPAY ==
--- NOTE | 2024-06-19 10:23 | MHC.OFFVIS ---
Vital Signs 06/19/24 10:38 Height 5 ft 1 in Weight 89 lb BMI 16.8 BP 124/63 Blood Pressure Location Lt brachial Position Sitting Pulse 59 Intake Visit Reasons: s/p Excision lg skin neoplasm Intake Note: Patient is seen in office for post op assessment post excision skin neoplasm. Pt c/o: denies any concers, suture removed at visit Accompanied by: Self / Same As Patient Allergies No Known Allergies Allergy (Verified 06/19/24 10:39) HPI Comments Details: 74-year-old female patient returning 1 week following excision of a skin lesion of the left upper lip. She tolerated the procedure well and denies any ongoing problem. Pathology revealed a basal cell carcinoma of the skin with negative margins. A copy of the report was provided to the patient. [facility] Medical History (Updated 06/19/24 @ 10:42 by Bennie Seo MD) Basal cell carcinoma of skin of face Hyperlipidemia HTN (hypertension) History of stent insertion of renal artery CAD (coronary artery disease) Surgical History History of dental surgery Hx of cataract surgery Hx of hysterectomy History of total hysterectomy (12/2022) S/P CABG x 5 History of cardiac cath Family History Father CAD (coronary artery disease) Mother No problems noted. Sister Breast cancer Social History Alcohol intake: never Patient Tobacco Use Status: Former Tobacco user Physical Exam Const General: no acute distress Nutritional Appearance: well nourished HEENT Other: Incision in the left face is clean, dry, and intact without redness or discharge. Sutures removed and the wounds found to be well healed. Preoperative view: Assessment & Plan Assessment & Plan (1) Basal cell carcinoma of skin of face: Code(s): C44.310 - Basal cell carcinoma of skin of unspecified parts of face Category: Medical Qualifiers: Basal cell carcinoma face location: lip Qualified Code(s): C44.01 - Basal cell carcinoma of skin of lip Plan 74-year-old female patient status post excision of a basal cell carcinoma of the left upper lip. She tolerated the procedure well the wounds are healing nicely. I have asked her to return approximately 1 month for follow-up examination. She is welcome to call sooner for any concerns. Coding Level of Care Code Global (74187) Diagnoses Basal cell carcinoma (BCC) of skin of lip C44.01 Basal cell carcinoma face location: lip
[2024-06-19 10:38] VITALS: BP 124/63; PULSE 59; BMI 16.8
== END 2024-06-19 10:40 | disposition home or self-care (01) ==
LOC: HO.HGS 10:22
PROVIDERS: PCP Internal Medicine; Visit Provider Surgery
DX: C44.01 Basal cell carcinoma of skin of lip (principal)
CPT/HCPCS: 99024

== ENCOUNTER → 2024-06-19 10:21 | Outpatient (BNVA) | payer MEDICARE, OTHER, SELFPAY | PROVIDERS: PCP Internal Medicine; Visit Provider Surgery | DX: C44.01 Basal cell carcinoma of skin of lip (principal) | CPT/HCPCS: 99212 ==

== ENCOUNTER 2024-07-03 10:33 | Outpatient (AMB) | payer MEDICARE, OTHER, SELFPAY ==
--- NOTE | 2024-07-03 10:34 | A.OFFVIS_ITS ---
Vital Signs 3 07/03/24 10:43 Height 5 ft 1 in Weight 87 lb BMI 16.4 BP 132/62 Blood Pressure Location Lt brachial Position Sitting Pulse 40 L Intake Visit Reasons: one month follow up, s/p Excision lg skin neoplasm Intake Note: Patient is seen in office for one month follow up visit, post exc left upper lip lesion. Pt c/o: denies any concerns applying ointment as needed Scrip Clerk Required: No Accompanied by: Self / Same As Patient Allergies No Known Allergies Allergy (Verified 07/03/24 10:45) Medication List - Last Reconciled 07/03/24 by Bennie Seo MD alendronate 70 mg PO QWEEK amlodipine 10 mg PO DAILY aspirin (Ecotrin Low Strength) 81 mg PO DAILY atorvastatin 80 mg PO DAILY enalapril maleate 20 mg PO DAILY furosemide 40 mg PO DAILY isosorbide mononitrate ER 30 mg PO DAILY metoprolol succinate ER 100 mg PO DAILY HPI Comments Details: Patient returns 1 month following excision of a basal cell carcinoma of the left upper lip. She reports feeling improved with no further weakness in the lip. She denies any pain or discharge. [facility] Medical History Basal cell carcinoma of skin of face Hyperlipidemia HTN (hypertension) History of stent insertion of renal artery CAD (coronary artery disease) Surgical History History of excision of lesion (06/10/24) History of dental surgery Hx of cataract surgery Hx of hysterectomy History of total hysterectomy (12/2022) S/P CABG x 5 History of cardiac cath Family History Father CAD (coronary artery disease) Mother No problems noted. Sister Breast cancer Social History Alcohol intake: never Patient Tobacco Use Status: Former Tobacco user Physical Exam Vital Signs: Last Vital Signs Pulse 40 L 07/03/24 10:43 BP 132/62 07/03/24 10:43 BMI result Body Mass Index 16.4 HEENT Other: Well-healed incision left upper lip without evidence of infection or weakness in the lip. Assessment & Plan Assessment & Plan (1) Basal cell carcinoma of skin of face: Code(s): C44.310 - Basal cell carcinoma of skin of unspecified parts of face Category: Medical Qualifiers: Basal cell carcinoma face location: lip Qualified Code(s): C44.01 - Basal cell carcinoma of skin of lip Plan 74-year-old female patient with basal cell carcinoma of the left upper lip. She underwent excision of the lip lesion with negative margins. She returns today for final wound check. Wounds are clean, dry, and intact. She should follow up as needed. Coding Level of Care Code Global (12589) Diagnoses Basal cell carcinoma (BCC) of skin of lip C44.01 Basal cell carcinoma face location: lip
[2024-07-03 10:43] VITALS: BP 132/62; PULSE 40; BMI 16.4
== END 2024-07-03 11:05 | disposition home or self-care (01) ==
PROVIDERS: PCP Internal Medicine; Visit Provider Surgery
DX: C44.01 Basal cell carcinoma of skin of lip (principal)
CPT/HCPCS: 99024

== ENCOUNTER → 2024-07-03 10:33 | Outpatient (BNVA) | payer MEDICARE, OTHER, SELFPAY | PROVIDERS: PCP Internal Medicine; Visit Provider Surgery | DX: C44.01 Basal cell carcinoma of skin of lip (principal) | CPT/HCPCS: 99212 ==

== ENCOUNTER 2024-11-06 14:14 | Outpatient (REF) | payer MEDICARE, OTHER, SELFPAY ==
--- NOTE | ~2024-11-06 | XR_ITS ---
EXAMINATION: XR LUMBOSACRAL SPINE CLINICAL INFORMATION: LOW BACK PAIN COMPARISON: None available. Correlation made with CT abdomen and pelvis 11/08/2022. TECHNIQUE: Three views of the lumbosacral spine. FINDINGS: No fracture, or suspicious bone lesion, or compression deformity. There is a moderate right convex scoliosis with a rotatory component. There is mild straightening of the normal lordosis. There is no significant subluxation. Multilevel disc degeneration, severe at L3-4, and L5-S1. Normal facet alignment. Multilevel hypertrophic degenerative facet changes spanning L2-S1. Right renal artery stent noted. Extensive aortic and iliac arterial calcification with ectasia. XR/XR lumbar spine 2-3V IMPRESSION: 1. No acute findings lumbar spine. 2. Moderate right convex scoliosis with a rotatory component. 3. Moderate to advanced multilevel spondylosis. Electronically signed by: Cedric Palm MD 11/09/2024 11:09 AM EDT
--- NOTE | ~2024-11-06 | XR_ITS ---
EXAMINATION: XR FOOT, RIGHT CLINICAL INFORMATION: RIGHT FOOT PAIN COMPARISON: None available. TECHNIQUE: AP, lateral, and oblique views of the right foot. FINDINGS: No fracture, dislocation, or suspicious bone lesion. Normal bone mineralization. Normal alignment. Joint spaces are preserved. No significant arthropathy. Normal plantar arch. There is a small dorsal calcaneal spur. No evidence of ankle joint effusion. Soft tissues appear normal. XR/XR foot RT min 3V IMPRESSION: 1. No acute findings right foot. 2. Small dorsal calcaneal spur. Electronically signed by: Cedric Palm MD 11/09/2024 11:04 AM EDT
== END 2024-11-06 14:15 | disposition home or self-care (01) ==
LOC: HO.HMGCLDS 14:14
PROVIDERS: PCP Internal Medicine; Visit Provider Internal Medicine
DX: M54.50 Low back pain, unspecified (principal)
CPT/HCPCS: 72100; 73630

== ENCOUNTER → 2024-11-06 14:22 | Outpatient (BNV) | payer MEDICARE, OTHER, SELFPAY | PROVIDERS: PCP Internal Medicine; Visit Provider Radiology Diagnostic Radiology | DX: M47.816 Spondylosis without myelopathy or radiculopathy, lumbar region (principal); M41.86 Other forms of scoliosis, lumbar region; M77.31 Calcaneal spur, right foot | CPT/HCPCS: 72100; 73630 ==

== ENCOUNTER 2024-11-27 10:16 | Outpatient (AMB) | payer MEDICARE, OTHER, SELFPAY ==
--- NOTE | 2024-11-27 10:24 | MHC.OFFVIS ---
Vital Signs 11/27/24 10:27 Height 5 ft 1 in Weight 88 lb 2.958 oz BMI 16.7 BP 116/64 Blood Pressure Location Lt brachial Position Sitting Pulse 61 Intake Visit Reasons: 1 year fu Intake Note: 1 year follow-up with ekg brigitte good Regulatory Affairs Consultant Required: No Allergies No Known Allergies Allergy (Verified 07/03/24 10:45) Medication List - Last Reconciled 11/27/24 by Leopoldo Davidson MD alendronate 70 mg PO QWEEK amlodipine 10 mg PO DAILY aspirin (Ecotrin Low Strength) 81 mg PO DAILY atorvastatin 80 mg PO DAILY enalapril maleate 20 mg PO DAILY furosemide 40 mg PO DAILY isosorbide mononitrate ER 30 mg PO DAILY metoprolol succinate ER 100 mg PO DAILY HPI Comments Details: Maura comes for follow-up. She continues to have no symptoms. She says she remains active throughout and has no exertional chest pain. Denies any shortness of breath, orthopnea, PND. No prolonged palpitation irregular heartbeat. For the last 2 months she has been having symptoms of sciatica which restricts her activity although this is only new. She takes all her medications religiously. No recent lipid panel. Denies any lightheadedness, syncope. [facility], [facility] Medical History Basal cell carcinoma of skin of face Hyperlipidemia HTN (hypertension) History of stent insertion of renal artery CAD (coronary artery disease) Surgical History History of excision of lesion (06/10/24) History of dental surgery Hx of cataract surgery Hx of hysterectomy History of total hysterectomy (12/2022) S/P CABG x 5 History of cardiac cath Family History Father CAD (coronary artery disease) Mother No problems noted. Sister Breast cancer Social History Alcohol intake: never Patient Tobacco Use Status: Former Tobacco user Review of Systems Const Reports no additional complaints Eyes Reports no additional complaints ENT Reports no additional complaints Card Reports no additional complaints, Denies chest pain, Denies chest pain with activity, Denies irregular heart rhythm, Denies leg edema, Denies dyspnea on exertion and Denies paroxysmal nocturnal dyspnea Resp Reports no additional complaints and Denies dyspnea on exertion GI Reports no additional complaints Reports no additional complaints Skin/Breast Reports system reviewed and no additional complaints, except as documented Neuro Reports no additional complaints and Denies Abnormal speech present Endo Reports no additional complaints Aller/Immun Reports no additional complaints Physical Exam Vital Signs: Last Vital Signs Pulse 61 11/27/24 10:27 BP 116/64 11/27/24 10:27 BMI result Body Mass Index 16.7 Const General: cooperative, comfortable, no acute distress, alert, awake, Physically active and well groomed Nutritional Appearance: thin Orientation/consciousness: patient oriented x3 Limitations: no limitations HEENT Head: Yes normocephalic and Yes atraumatic Neck Neck: Yes trachea midline, Yes supple and Yes no JVD Carotids: bruit bilateral Resp Effort & Inspection: normal respiratory effort Auscultation: clear to auscultation bilaterally and diminished lung sounds Cardio Jugular venous distension: no JVD Palpation: normal PMI Rate: regular rate Rhythm: abnormal rhythm with ectopic beats Heart sounds: S1 normal heart sound present, S2 normal heart sound present, no click, no gallops and Murmur heart sound present systolic holo, harsh and other (Throughout) Peripheral pulses: other (Diminished bilateral dorsalis pedis) GI Auscultation: normal bowel sounds Skin General skin exam: no rashes or lesions noted Neuro General: patient oriented x3 and no focal motor deficits Speech: No Abnormal speech present Extrem General: Yes no clubbing, cyanosis or edema Office Procedures EKG Details: EKG shows sinus bradycardia with biatrial enlargement with pulmonary disease pattern with LVH with repolarization abnormality [id number], Complete Assessment & Plan Assessment & Plan (1) CAD (coronary artery disease): Comment: Asymptomatic leading to coronary artery bypass grafting Code(s): I25.10 - Atherosclerotic heart disease of [place] coronary artery without angina pectoris Category: Medical Plan: Coronary artery disease status post coronary artery bypass grafting remotely without any current symptoms. Myocardial perfusion imaging 2 years ago within normal limits. Continue low-dose aspirin therapy for life. Continue high-intensity statin therapy. Advised lipid panel in near future. Continue aggressive blood pressure control which is currently well optimized. Importance of good blood pressure control was discussed. Advised to maintain activity level as tolerated. (2) Mitral regurgitation: Code(s): I34.0 - Nonrheumatic mitral (valve) insufficiency Category: Medical Plan: Mitral regurgitation which clinically appears to be severe. Advise follow-up echocardiogram in near future to assess for change in cardiac anatomy as well as any worsening pulmonary systolic pressures which may necessitate mitral valve repair. Echocardiogram will be done near future. Advised to call me with any new symptoms. SBE prophylaxis as per ACC/[facility] guidelines. Follow up in the clinic otherwise in 1 year's time, sooner p.r.n.. Thank you for allowing me to partake in her care Orders: Orders CA echo transthoracic complete Today I34.0 - Nonrheumatic mitral (valve) insufficiency Lipid Panel Today I25.10 - Atherosclerotic heart disease of [place] coronary artery without angina pectoris Coding Level of Care Code Est Pt Level 4 (37658) Complex EM visit Add On G2211 Diagnoses CAD (coronary artery disease) I25.10 Mitral regurgitation I34.0 CPT Codes EKG - CPT: 28944-[id number], Complete ([id number])
[2024-11-27 10:27] VITALS: BP 116/64; PULSE 61; BMI 16.7
== END 2024-11-27 10:49 | disposition home or self-care (01) ==
PROVIDERS: PCP Internal Medicine; Visit Provider Internal Medicine Cardiovascular Disease
DX: I25.10 Atherosclerotic heart disease of native coronary artery without angina pectoris (principal); I34.0 Nonrheumatic mitral (valve) insufficiency
CPT/HCPCS: 93010; 99214; G2211

== ENCOUNTER → 2024-11-27 10:16 | Outpatient (BNVA) | payer MEDICARE, OTHER, SELFPAY | PROVIDERS: PCP Internal Medicine; Visit Provider Internal Medicine Cardiovascular Disease | DX: I25.10 Atherosclerotic heart disease of native coronary artery without angina pectoris (principal); I34.0 Nonrheumatic mitral (valve) insufficiency | CPT/HCPCS: 93005; 99212 ==

== ENCOUNTER 2024-12-10 09:15 | Outpatient (REF) | payer MEDICARE, OTHER, SELFPAY ==
[2024-12-10 11:46] LABS: Cholesterol 129 mg/dL (<200); HDL Cholesterol 48 mg/dL (>40); LDL Cholesterol Calculated 62 mg/dL (<100); Triglycerides 97 mg/dL (<150)
== END 2024-12-10 09:16 | disposition home or self-care (01) ==
LOC: HO.WFDLDS 09:15
PROVIDERS: Visit Provider Internal Medicine Cardiovascular Disease
DX: I25.10 Atherosclerotic heart disease of native coronary artery without angina pectoris (principal); I10 Essential (primary) hypertension
CPT/HCPCS: 36415; 80061

== ENCOUNTER 2025-01-14 11:51 | Outpatient (REF) | payer MEDICARE, OTHER, SELFPAY ==
--- NOTE | ~2025-01-14 | XR_ITS ---
EXAMINATION: XR ANKLE 2 VIEWS RIGHT, XR FOOT 3 OR MORE VIEWS RIGHT HISTORY: RIGHT FOOT AND ANKLE PAIN COMPARISON: Comparison is made with the prior examination of the right foot dated 11/06/2024. FINDINGS: Five views of the right foot and ankle are submitted. Osseous mineralization is normal. A well-corticated osseous density adjacent to the tip of the medial malleolus is likely the result of old trauma. There is no acute fracture or dislocation. The joint spaces are preserved. Again seen is a small calcaneal spur at the insertion of the Achilles tendon.. The soft tissues are unremarkable. XR/XR ankle RT 2V IMPRESSION: No evidence of fracture of the right foot or ankle. Electronically signed by: Lee Spain MD 01/14/2025 01:33 PM EDT
--- NOTE | ~2025-01-14 | XR_ITS ---
EXAMINATION: XR ANKLE 2 VIEWS RIGHT, XR FOOT 3 OR MORE VIEWS RIGHT HISTORY: RIGHT FOOT AND ANKLE PAIN COMPARISON: Comparison is made with the prior examination of the right foot dated 11/06/2024. FINDINGS: Five views of the right foot and ankle are submitted. Osseous mineralization is normal. A well-corticated osseous density adjacent to the tip of the medial malleolus is likely the result of old trauma. There is no acute fracture or dislocation. The joint spaces are preserved. Again seen is a small calcaneal spur at the insertion of the Achilles tendon.. The soft tissues are unremarkable. XR/XR foot RT min 3V IMPRESSION: No evidence of fracture of the right foot or ankle. Electronically signed by: Lee Spain MD 01/14/2025 01:33 PM EDT
== END 2025-01-14 11:52 | disposition home or self-care (01) ==
LOC: HO.HMGCX 11:51
PROVIDERS: PCP Internal Medicine; Visit Provider Internal Medicine
DX: R60.0 Localized edema (principal); M79.672 Pain in left foot; M79.671 Pain in right foot
CPT/HCPCS: 73600; 73630

== ENCOUNTER → 2025-01-14 11:57 | Outpatient (BNV) | payer MEDICARE, OTHER, SELFPAY | PROVIDERS: PCP Internal Medicine; Visit Provider Radiology Diagnostic Radiology | DX: M79.671 Pain in right foot (principal); M25.571 Pain in right ankle and joints of right foot | CPT/HCPCS: 73600; 73630 ==

== ENCOUNTER → 2025-06-07 12:47 | Outpatient (REF) | payer MEDICARE, OTHER, SELFPAY ==
--- NOTE | 2025-06-07 12:51 | CA_ITS ---
Transthoracic Echocardiogram Patient (Last, First, Middle): Maura Wallace, Gender: F Date of : 1950 Age: 75 Procedure Date: 06/07/2025 Procedure Type: Transthoracic Echocardiogram Location: OP Height: 154.94 cm Weight: 40.88 kg BSA: 1.35 m2 Heart Rate: bpm BP: 116 / 60 mmHg Client Server Programmer: Referring MD: Leopoldo Davidson MD Chief Clerk Shelter: Leopoldo Davidson MD Symptoms: I34.0 - Nonrheumatic mitral (valve) insufficiency Study Quality: Good ECG Rhythm: Sinus with extra beats Conclusions: - 1. Normal LV ejection fraction of 60 65% 2. Severely dilated left atrium 3. 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 Moderately elevated right ventricular systolic pressure 5. No gross pericardial effusion Findings Left Ventricle Normal left ventricular size, thickness, and systolic function. The visually estimated ejection fraction is between 60-65%. Spectral Doppler is indicative of a restrictive filling pattern. Wall Motion Rest Echo Findings The basal inferolateral segment is akinetic. All other scored wall segments showed normal motion. Right Ventricle Normal right ventricular cavity size and systolic function. Atria The left atrium is severely dilated. There is no evidence of interatrial shunt. The right atrium is normal in size. Aortic Valve Normal aortic valve structure and function. There is no aortic valve stenosis. There is no aortic valve regurgitation. Mitral Valve The mitral valve appears myxomatous. There is mild anterior and severe posterior mitral leaflet thickening. The posterior mitral leaflet has restricted mobility. There is severe posterior mitral leaflet prolapse. There is severe mitral valve regurgitation. The mitral regurgitation jet is directed anteriorly. There is no mitral valve stenosis. Pulmonic Valve The pulmonic valve is likely normal. There is trace pulmonic valve regurgitation. Tricuspid Valve Normal tricuspid valve structure. There is mild tricuspid valve regurgitation. Normal right atrial pressure. Moderate pulmonary hypertension is present. Great Vessels The aorta was not well visualized. The pulmonary artery was not well visualized. Venous The inferior vena cava is normal in size and collapses greater than 50% with inspiration. Pericardium/Pleural There is no evidence of pericardial effusion. Prior Study Comparison Changes noted compared to prior study dated: 12/17/2023. Mitral regurgitation appears to be severe. RV systolic pressure is moderately elevated Measurements 2D Linear Measurements IVSd: 1.10 0.6-0.9/0.6-1.0 cm LVIDd: 4.81 3.9-5.3/4.2-5.9 cm LVIDd Index: 3.56 2.4-3.2/2.2-3.1 cm/m2 LVIDs: 3.19 2.0-3.6 cm LVPWd: 1.08 0.7-1.1 cm Ao Root: 2.80 2.1-3.5 cm LA Diam: 4.50 2.7-3.8/3.0-4.0 cm LAIDs Index: 3.33 1.5-2.3 cm/m2 LV Mass: 239.46 67-162/88-224 g LV Mass Index: 177.38 43-95/49-115 g/m2 LVOT Diam: 2.00 3.0+(-)1.3 cm Mitral Valve MV Pk E: 1.33 MV PK A: 0.57 MV Decel Time: 201.00 E/A: 2.30 E'Lateral: 7.18 E'Medial: 7.18 E/E' Med: 18.50 E/E' Lat: 18.50 PHT: 59.00 MVA PHT: 3.73 Decel [place]: 6.62 MR Vol - PW Dopp: 108.33 MR VTI: 1.57 MR ERO: 69.00 MR Alias Anselmo: 0.61 MR RAD: 0.90 Aortic Valve AoV Pk Anselmo: 2.54 AoV Mn Anselmo: 1.78 AoV VTI: 0.60 AoV Pk Grad: 26.00 Aov Mn Grad: 16.00 SONIA Cont.VTI: 0.81 LVOT LVOT Pk Anselmo: 0.67 LVOT Mn Anselmo: 0.38 LVOT VTI: 0.15 LVOT Pk Grad: 2.00 LVOT Mn Grad: 1.00 LVOT Diam: 2.00 LVOT Area: 3.14 Diastolic Function MV Pk E: 1.33 MV Pk A: 0.57 E/A: 2.30 E'Medial: 7.18 E/E' Med: 18.50 E' Laterial: 7.18 E/E' Lat: 18.50 Right Ventricle TAPSE (mm): 23.00 TVS' Anselmo: 15.00 Tricuspid Valve TR Pk Anselmo: 3.41 TR Pk Grad: 47.00 RA Press: 3.00 RVSP: 50.00 Great Vessels Aorta Ao Root-2D: 2.80 2.0-3.7 cm Pulmonary Valve PV Pk Anselmo: 0.81 Peak PV Grad: 3.00 Updated in Other Vendor System with Status of Final Leopoldo Davidson MD electronically signed on 06/07/2025 2:28:32 PM with status of Final
== END ==
LOC: HO.CARD 12:47
PROVIDERS: PCP Internal Medicine; Visit Provider Internal Medicine Cardiovascular Disease
DX: I34.0 Nonrheumatic mitral (valve) insufficiency (principal)
CPT/HCPCS: 93306

== ENCOUNTER → 2025-06-07 12:51 | Outpatient (BNV) | payer MEDICARE, OTHER, SELFPAY | PROVIDERS: PCP Internal Medicine; Visit Provider Internal Medicine Cardiovascular Disease | DX: I51.7 Cardiomegaly (principal); I34.0 Nonrheumatic mitral (valve) insufficiency; I34.1 Nonrheumatic mitral (valve) prolapse | CPT/HCPCS: 93306 ==

== ENCOUNTER 2025-06-08 11:15 | Outpatient (AMB) | payer MEDICARE, OTHER, SELFPAY ==
--- NOTE | 2025-06-08 11:18 | A.OFFPC_ITS ---
Vital Signs 06/08/25 11:26 Height 4 ft 11.06 in Weight 91 lb BMI 18.3 BP 114/78 Blood Pressure Location Lt brachial Position Sitting Respiration 18 Pulse 67 Pulse Source Pulse Oximeter Temp 97.4 F Temp Source Temporal Artery Scan Pulse Oximetry (%) 97 Oxygen Delivery Method Nasal Cannula Oxygen Flow Rate 2 Intake Visit Reasons: D/C [facility], acute resp failure w/ hypoxia Process Improvement Manager Required: No Accompanied by: son-jennifer Allergies No Known Allergies Allergy (Verified 06/08/25 11:18) Medication List - Last Reconciled 06/08/25 by Javier Hunter MD alendronate 70 mg PO QWEEK amlodipine 10 mg PO DAILY apixaban (Eliquis) 5 mg PO BID aspirin (Ecotrin Low Strength) 81 mg PO DAILY atorvastatin 80 mg PO DAILY enalapril maleate 20 mg PO DAILY furosemide 40 mg PO BID isosorbide mononitrate ER 30 mg PO DAILY metoprolol succinate ER 100 mg PO DAILY Tobacco use date assessed: 06/08/25 Fall risk assessment: No Falls in past year Last assessed Fall Risk: 06/08/25 Dental Screening Dental Screen Date: 06/08/25 Did you have a dental visit in the last 12 months?: Yes Did you have a dental problem in the last 6 months where you did not have access to dental care?: No Was dental information given to patient?: Patient has dentist HPI HPI Comments History of Present Illness Details The patient is a 75-year-old female presenting with ongoing management of diastolic heart failure and atrial fibrillation. Diastolic heart failure was recently diagnosed following a hospitalization due to respiratory distress, characterized by severe shortness of breath and a marked elevation in BNP levels measured at approximately 9,000, indicative of significant fluid retention. This episode led to the adjustment of her diuretic therapy, increasing her furosemide to twice daily. Additionally, she requires supplemental oxygen therapy, set at two liters during daytime activities and one liter at night. The patient's atrial fibrillation was detected during the same hospital admission, leading to the initiation of anticoagulation therapy with Eliquis, prescribed at 5 mg twice daily, to mitigate her increased risk of thromboembolic events. Her antihypertensive regimen was modified from metoprolol 100 mg every morning to 100 mg each morning with an additional 50 mg dose at night to enhance rate control. She also experiences exacerbated morning fatigue, requiring several hours to feel adequately functional. This is possibly attributed to recent hospitalization and diminished activity level during her stay. Further empirical considerations include adjustments in her daily activities that might contribute to her physical rehabilitation and overall recuperation post-discharge. Medical History: - Diastolic Heart Failure - Atrial Fibrillation - Essential Hypertension - Coronary Artery Disease - Mitral Valve Prolapse - Dyslipidemia - Osteoporosis - Emphysema - History of Carotid Artery Stenosis (90 % blockage) Surgical History: - Open-heart surgery - Carotid endarterectomy for 90% stenosi s - History of coronary artery stents plac ement Medications: - Metoprolol 100 mg in the morning and 5 0 mg at night for hypertension and heart rate control - Amlodipine 20 mg for hypertension - Furosemide 40 mg twice daily for diast olic heart failure - Isosorbide mononitrate 30 mg for angin a - Eliquis 5 mg twice daily for atrial fi brillation Family History: - Sister passed from cancer (specific ty pe unknown) - Father from heart disease at age 62 - Younger sister passed from a heart att ack - Another sister survived a heart attack - Father with history of dementia Diagnostic Results: - No specific labs or diagnostic tests d etailed in the conversation Social History: - Quit smoking 20 years ago, but has a h istory of smoking for 30 years - No current tobacco, alcohol, or recrea tional drug use - Active engagement in physical therapy at home [facility] Medical History (Updated 06/08/25 @ 11:58 by Javier Hunter MD) Osteoporosis Diastolic heart failure Atrial fibrillation Mitral valve prolapse Basal cell carcinoma of skin of face Hyperlipidemia HTN (hypertension) History of stent insertion of renal artery CAD (coronary artery disease) Surgical History History of excision of lesion (06/10/24) History of dental surgery Hx of cataract surgery Hx of hysterectomy History of total hysterectomy (12/2022) S/P CABG x 5 History of cardiac cath Family History Father CAD (coronary artery disease) Mother No problems noted. Sister Breast cancer Social History Housing: House Alcohol intake: never Patient Tobacco Use Status: Former Tobacco user Years Smoked: 30 years e-Cigarette/Vaping Use: Never Used service: No Current occupational status: retired Questionnaire PHQ-9 Over the last 2 weeks, how often have you been bothered by any of the following problems? 1. Little interest or pleasure in doing things: not at all 2. Feeling down, depressed, or hopeless: not at all 3. Trouble falling or staying asleep, or sleeping too much: not at all 4. Feeling tired or having little energy: not at all 5. Poor appetite or overeating: not at all 6. Feeling bad about yourself - or that you are a failure or have let yourself or your family down: not at all 7. Trouble concentrating on things, such as reading the newspaper or watching television: not at all 8. Moving or speaking so slowly that other people could have noticed. Or the opposite - being so fidgety or restless that you have been moving around a lot more than usual: not at all 9. Thoughts that you would be better off or of hurting yourself in some way: not at all Total score: 0 Depression Screening Interpretation: Negative Depression Screening Done: Yes 81236 - PHQ-9 Billing: Yes Source: Developed by Drs. Lee Chavez, Johanne Fuentes, Rolando Bautista and colleagues, with an educational yeimi from [employer]. Thrive Questionnaire Date Thrive assessed: 06/08/25 I am a: Patient What is your living situation today?: I have a steady place to live Within the past 12 months, did the food you bought not last and you didn't have the money to get more?: Never true Within the past 12 months, did you worry whether your food would run out before you got money to buy more?: Never true Do you have trouble paying for medicines?: No Do you have trouble getting transportation to medical appointments?: No Do you have trouble paying your heating and electricity bill?: No Do you have trouble taking care of your child, family member or friend?: No Do you have trouble with day-to-day activities such as bathing, preparing meals, shopping, managing finances, etc.?: No Are you currently unemployed and looking for a job?: No Are you interested in more education?: No THRIVE Score: 0 AUDIT C Alcohol Use Questionnaire (AUDIT-C) 1. How often do you have a drink containing alcohol?: Never 3. How often do you have six or more drinks on one occasion?: Never Total Score: 0 Score Reviewed/Action Taken: Yes DIEGO-7 AMB Questionnaire DIEGO-7 Date DIEGO - 7 assessed: 06/08/25 Feeling nervous, anxious, or on edge: 0 = Not at all Not being able to stop or control worryin = Not at all Worrying too much about different things: 0 = Not at all Trouble relaxin = Not at all Being so restless that it is hard to sit still: 0 = Not at all Becoming easily annoyed or irritable: 0 = Not at all Feeling afraid as if something awful might happen: 0 = Not at all Total DIEGO-7 score (0-4 normal; 5-9 mild; 10-14 moderate; 15-21 severe): 0 Source: Developed by Drs. Lee Chavez, Johanne Fuentes, Rolando Bautista and colleagues, with an educational yeimi from [employer]. DIEGO-7 Assessment Billing DIEGO-7 Assessment Tool: DIEGO-7 Assessment 15938 Review of Systems Narrative - Cardiovascular: Reports morning fatigue and history of fluid retention - Respiratory: Reports using supplemental oxygen for shortness of breath - Hematological: Denies current issues related to anticoagulation All systems reviewed & are unremarkable except as reviewed in HPI and above Physical exam (Primary Care) Vital Signs: Last Vital Signs Temp 97.4 F 06/08/25 11:26 Pulse 67 06/08/25 11:26 Resp 18 06/08/25 11:26 BP 114/78 06/08/25 11:26 Pulse Ox 97 06/08/25 11:26 Oxygen Delivery Method Nasal Cannula 06/08/25 11:26 Oxygen Flow Rate 2 06/08/25 11:26 BMI result Body Mass Index 18.3 Tobacco/Smoking Status: Tobacco use Status Tobacco use date assessed 06/08/25 06/08/25 11:20 Patient Tobacco Use Status Former Tobacco user 06/08/25 11:20 e-Cigarette/Vaping Use Never Used 06/08/25 11:29 Depression Screening Interpretation: Negative Narrative General: +Alert and oriented, Well nourished, No acute distress. Eye: Pupils are equal, round and reactive to light, Intact accommodation, Extraocular movements are intact, Normal conjunctiva, Vision unchanged. HENT: Normocephalic, Atraumatic, Tympanic membranes are clear, Normal hearing, Oral mucosa is moist, No pharyngeal erythema, Ear canals patent. Respiratory: Lungs CTA bilaterally, No wheeze, Respirations are non-labored. Patient is on supplemental oxygen, 2 liters during the day, 1 liter at night, and 2 liters with activity. Cardiovascular: Irregular rhythm due to atrial fibrillation, S1 auscultated, S2 auscultated, No murmur, Good pulses equal in all extremities, Normal peripheral perfusion, No edema. Presence of mitral valve prolapse and regurgitation. Gastrointestinal: Soft, Non-tender, Non-distended, Normal bowel sounds, No organomegaly. Musculoskeletal: Normal range of motion, Normal strength, No tenderness, No swelling, No deformity, Normal gait. Integumentary: Warm, Dry, [place], Intact. Neurologic: Alert, Oriented, Normal sensory, Normal motor function, No focal defects, Cranial Nerves II-XII are grossly intact, Normal deep tendon reflexes. Psychiatric: Cooperative, Appropriate mood & affect, Normal judgment. Coding Level of Care Code New Pt Level 5 (94075) Diagnoses Acute diastolic heart failure I50.31 Heart failure chronicity: acute Paroxysmal atrial fibrillation I48.0 Atrial fibrillation type: paroxysmal Primary hypertension I10 Hypertension type: primary hypertension Nonrheumatic mitral valve regurgitation I34.0 Cardiac valve disease etiology: nonrheumatic Coronary artery disease involving [place] coronary artery of [place] heart without angina pectoris I25.10 Associated angina: without angina Coronary Disease-Associated Artery/Lesion type: [place] artery [place] vs. transplanted heart: [place] heart Mitral valve prolapse I34.1 Hyperlipidemia, unspecified hyperlipidemia type E78.5 Hyperlipidemia type: unspecified Osteoporosis, unspecified osteoporosis type, unspecified pathological fracture presence M81.0 Osteoporosis type: unspecified Presence of current pathological fracture: unspecified Additional Codes PHQ-9 - 70810 - PHQ-9 Billing: Yes ([id number]) DIEGO-7 Assessment Billing - DIEGO-7 Assessment Tool: DIEGO-7 Assessment 59274 ([id number]) Time Spent (min) 70 Comment Review of external chart, records, ECHO, labs Assessment & Plan Assessment & Plan (1) Diastolic heart failure: Comment: - Monitor fluid status closely with strict daily weights and symptom monitoring. - Recently admitted to [facility] for acute hypoxic respiratory failure with elevation of BNP to over 9000. Echo when available however discharge summary reviewed. - Continue adherence to current diuretic regimen. (Lasix 40mg BID) - Plan follow-up with cardiology for ongoing management and potential adjustments. Code(s): I50.30 - Unspecified diastolic (congestive) heart failure Category: Medical Qualifiers: Heart failure chronicity: acute Qualified Code(s): I50.31 - Acute diastolic (congestive) heart failure (2) Atrial fibrillation: Comment: - Continue anticoagulation therapy with Eliquis to reduce stroke risk. - Evaluate efficacy of beta-jose therapy in ongoing rate control. - Discuss potential procedural interventions with cardiology to assess the need for further intervention. Code(s): I48.91 - Unspecified atrial fibrillation Category: Medical Qualifiers: Atrial fibrillation type: paroxysmal Qualified Code(s): I48.0 - Paroxysmal atrial fibrillation (3) HTN (hypertension): Comment: - Continue current regimen of antihypertensive medications including metoprolol, isosorbide mononitrate and amlodipine. - Monitor blood pressure regularly. Code(s): I10 - Essential (primary) hypertension Category: Medical Qualifiers: Hypertension type: primary hypertension Qualified Code(s): I10 - Ess ential (primary) hypertension (4) Mitral regurgitation: Comment: - Recommend cardiology consultation to evaluate mitral regurgitation severity an d consider surgical intervention if symptomatic progression occurs. - ECHO from May 2025 reviewed with prolapse with elevated RVSP Code(s): I34.0 - Nonrheumatic mitral (valve) insufficiency Category: Medical Qualifiers: Cardiac valve disease etiology: nonrheumatic Qualified Code(s): I34.0 - Nonrheumatic mitral (valve) insufficiency (5) CAD (coronary artery disease): Comment: Asymptomatic leading to coronary artery bypass grafting - Continue cardiac risk management with lipid-lowering treatments and lifestyle modifications. - Discuss potential need for periodic coronary imaging based on symptomatology. Code(s): I25.10 - Atherosclerotic heart disease of [place] coronary artery without angina pectoris Category: Medical Qualifiers: Associated angina: without angina Coronary Disease-Associated Artery/Lesion type: [place] artery [place] vs. transplanted heart: [place] heart Qualified Code(s): I25.10 - Atherosclerotic heart disease of [place] coronary artery without angina pectoris (6) Mitral valve prolapse: Comment: - Recommend cardiology consultation to evaluate mitral regurgitation severity and consider surgical intervention if symptomatic progression occurs. - ECHO from May 2025 reviewed with regurgitation with elevated RVSP Code(s): I34.1 - Nonrheumatic mitral (valve) prolapse Category: Medical (7) Hyperlipidemia: Comment: - Continue Atorvastatin 80mg Daily - Most recent Lipid Panel reviewed with good control of LDL but will repeat labs today Code(s): E78.5 - Hyperlipidemia, unspecified Category: Medical Qualifiers: Hyperlipidemia type: unspecified Qualified Code(s): E78.5 - Hyperlipidemia, unspecified (8) Osteoporosis: Comment: - Ensure appropriate calcium and vitamin D supplementation. - Continue alendronate 70mg daily Code(s): M81.0 - Age-related osteoporosis without current pathological fracture Category: Medical Qualifiers: Osteoporosis type: unspecified Presence of current pathological fracture: unspecified Qualified Code(s): M81.0 - Age-related osteoporosis without current pathological fracture Plan: Health Maintenance: - Mammogram scheduling to be updated - Advise on exercise within tolerable limits to improve cardiovascular health - Stress the importance of smoking cessation continuation, despite remote past usage Patient was informed and verbally consented to the use of an ambient scribe for clinic note documentation during this visit. Plan I informed the patient of her current status concerning diastolic heart failure, emphasizing the importance of fluid status monitoring and adherence to diuretic therapy. We discussed the management of her atrial fibrillation with Sharda, noting the potential for altered bleeding risk and the necessity for continued anticoagulation to reduce stroke risk. Discussions focused on the mitral valve prolapse?s potential impact, with plans for further cardiology evaluation. We reviewed her long history with coronary artery disease, reinforcing the role of lifestyle medicine in secondary prevention. The potential need for surgical intervention for mitral valve regurgitation was mentioned, with specialist consultations planned. I addressed lifestyle improvements and encouraged involvement with physical therapy. Orders: Orders Hemoglobin A1c Today Z00.00 - Encounter for general adult medical examination without abnormal findings Vitamin D 25-OH Total Today Z00.00 - Encounter for general adult medical examination without abnormal findings Complete Blood Count Auto Diff Today Z00.00 - Encounter for general adult medical examination without abnormal findings Comprehensive Met. Panel Today Z00.00 - Encounter for general adult medical examination without abnormal findings Lipid Panel Today Z00.00 - Encounter for general adult medical examination without abnormal findings TSH reflex Free T4 Today Z00.00 - Encounter for general adult medical examination without abnormal findings Patient Instructions: - Keep a daily record of your weight in the morning. - Continue to take your medications as prescribed. - Use the oxygen machine as instructed, with two liters during the day and one liter at night. - Report any unusual symptoms to your healthcare provider immediately, such as significant weight gain or worsening shortness of breath. - Attend follow-up appointments as scheduled. - Consult your soldering inspector as planned for any heart-related interventions. - Engage in gentle exercises, as tolerated, to maintain physical health. - Stay well-hydrated but aware of overall fluid intake.
[2025-06-08 11:26] VITALS: BP 114/78; PULSE 67; RESP 18; TEMP 36.3; O2SAT 97; BMI 18.3
== END 2025-06-08 11:54 | disposition home or self-care (01) ==
PROVIDERS: PCP Student in an Organized Health Care Education/Training Program; Visit Provider Student in an Organized Health Care Education/Training Program
DX: I11.0 Hypertensive heart disease with heart failure (principal); I50.31 Acute diastolic (congestive) heart failure; I48.0 Paroxysmal atrial fibrillation; I34.0 Nonrheumatic mitral (valve) insufficiency; I25.10 Atherosclerotic heart disease of native coronary artery without angina pectoris; I34.1 Nonrheumatic mitral (valve) prolapse; E78.5 Hyperlipidemia, unspecified; M81.0 Age-related osteoporosis without current pathological fracture

== ENCOUNTER 2025-06-08 11:15 | Outpatient (REF) | payer MEDICARE, OTHER, SELFPAY ==
[2025-06-08 13:19] LABS: MANUAL DIFF FLAG NO
[2025-06-08 13:29] LABS: Hematocrit 35.4 % (37.0-47.0); Hemoglobin 11.2 g/dl (12.0-16.0); Imm Gran Abs Auto 0.06 X10*3/uL (0.00-0.03); Imm Gran Pct Auto 0.5 % (0.0-0.4); Lymphocytes Absolute Auto 2.2 X10*3/uL (1.2-4.9); Mean Corpuscular HGB Conc 31.6 g/dl (31.0-35.0); Mean Corpuscular Hemoglobin 29.4 pg (27.0-33.0); Mean Corpuscular Volume 92.9 fL (80.0-98.0); NRBC Abs Auto 0.000 X10*3/uL (0.0-0.012); NRBC Pct Auto 0.0 /100WBC (0.0-0.2); Platelet Count 244 X10*3/uL (160-400); Red Blood Count 3.81 X10*6/uL (4.20-5.50); White Blood Count 11.8 X10*3/uL (4.8-10.8)
[2025-06-08 14:05] LABS: Alanine Aminotransferase 20 U/L (0-31); Albumin Level 4.2 g/dL (3.5-5.0); Alkaline Phosphatase 81 U/L (39-117); Anion Gap 13 (12-20); Aspartate Amino Transferase 30 U/L (5-31); Blood Urea Nitrogen 33 mg/dL (9-16); Calcium 9.0 mg/dL (8.4-10.2); Carbon Dioxide 35 mmol/L (22-29); Chloride 99 mmol/L (96-108); Cholesterol 130 mg/dL (<200); Estimated Glomerular Filt Rate 42; HDL Cholesterol 51 mg/dL (>40); Potassium 3.5 mmol/L (3.3-5.1); Sodium 143 mmol/L (135-145); Total Protein 6.7 g/dL (6.5-8.0); Triglycerides 74 mg/dL (<150)
== END 2025-06-08 11:16 | disposition home or self-care (01) ==
LOC: HO.10HDL 11:15
PROVIDERS: PCP Internal Medicine; Visit Provider Student in an Organized Health Care Education/Training Program
DX: Z00.00 Encounter for general adult medical examination without abnormal findings (principal); R53.83 Other fatigue; I50.31 Acute diastolic (congestive) heart failure; I48.0 Paroxysmal atrial fibrillation; I11.0 Hypertensive heart disease with heart failure; I34.0 Nonrheumatic mitral (valve) insufficiency; I25.10 Atherosclerotic heart disease of native coronary artery without angina pectoris; I34.1 Nonrheumatic mitral (valve) prolapse; E78.5 Hyperlipidemia, unspecified; M81.0 Age-related osteoporosis without current pathological fracture; Z99.81 Dependence on supplemental oxygen; Z79.01 Long term (current) use of anticoagulants; Z79.899 Other long term (current) drug therapy
CPT/HCPCS: 36415; 80053; 80061; 82306; 83036; 84443; 85025; 96127; 99202

== ENCOUNTER 2025-06-10 15:01 | Outpatient (AMB) | payer MEDICARE, OTHER, SELFPAY ==
--- NOTE | 2025-06-10 15:08 | A.OFFVIS_ITS ---
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 She is accompanied by her son. He has been doing well since her hospital discharge recently had [facility] where she was admitted with decompensated congestive heart failure. He is concerned about her mitral valve. She has diuresed and released home. She is currently doing well on her home oxygen back to her baseline with her activity level with exertional shortness of breath related to his COPD. She denies any orthopnea, PND, leg edema. Takes all her medications. She has no major bleeding issues or neurologic events. No prolonged palpitation irregular heartbeat currently on furosemide 40 mg b.i.d.. Recent echocardiogram shows normal LV ejection fraction with severely dilated left atrium with severe eccentric mitral regurgitation with moderately elevated right ventricular systolic pressure. [facility] Medical History (Updated 06/14/25 @ 08:19 by Leopoldo Davidson MD) Diastolic heart failure Osteoporosis Atrial fibrillation Mitral valve prolapse Basal cell carcinoma of skin of face Hyperlipidemia HTN (hypertension) History of stent insertion of renal artery CAD (coronary artery disease) Surgical History History of excision of lesion (06/10/24) History of dental surgery Hx of cataract surgery Hx of hysterectomy History of total hysterectomy (12/2022) S/P CABG x 5 History of cardiac cath Family History Father CAD (coronary artery disease) Mother No problems noted. Sister Breast cancer Social History Housing: House Alcohol intake: never Patient Tobacco Use Status: Former Tobacco user Years Smoked: 30 years e-Cigarette/Vaping Use: Never Used service: No Current occupational status: retired Review of Systems Const Denies chills, Denies fatigue, Denies fever(s), Denies frequent falls, Denies weakness, Denies weight gain and Denies weight loss ENT Denies dizziness Card Denies chest pain, Denies leg edema, Denies lightheadedness, Denies palpitations, Denies dyspnea, Denies dyspnea on exertion, Denies orthopnea and Denies other (loss of consciousness) Resp Denies cough, Denies dyspnea and Denies dyspnea on exertion GI Denies hematochezia and Denies change in stool character Musc Denies abnormal gait, Denies muscle weakness, Denies numbness, Denies radiating pain into limb and Denies tingling Neuro Denies Abnormal speech present, Denies abnormal gait, Denies dizziness, Denies frequent falls, Denies numbness, Denies tingling and Denies weakness Endo Denies fatigue and Denies palpitations Physical Exam Vital Signs: Last Vital Signs Pulse 58 06/10/25 15:09 BP 124/62 06/10/25 15:09 BMI result Body Mass Index 19.6 Const General: cooperative, comfortable, no acute distress, alert, awake, Physically active and well groomed Nutritional Appearance: thin Orientation/consciousness: patient oriented x3 Limitations: no limitations HEENT Head: Yes normocephalic and Yes atraumatic Neck Neck: Yes trachea midline, Yes supple and Yes no JVD Carotids: bruit bilateral Resp Effort & Inspection: normal respiratory effort Auscultation: clear to auscultation bilaterally and diminished lung sounds Cardio Jugular venous distension: no JVD Palpation: normal PMI Rate: regular rate Rhythm: abnormal rhythm with ectopic beats Heart sounds: S1 normal heart sound present, S2 normal heart sound present, no click, no gallops and Murmur heart sound present systolic holo, harsh and other (Throughout) Peripheral pulses: other (Diminished bilateral dorsalis pedis) GI Auscultation: normal bowel sounds Skin General skin exam: no rashes or lesions noted Neuro General: patient oriented x3 and no focal motor deficits Speech: No Abnormal speech present Extrem General: Yes no clubbing, cyanosis or edema Assessment & Plan Assessment & Plan (1) Heart failure due to valvular disease: Code(s): I50.9 - Heart failure, unspecified; I38 - Endocarditis, valve unspecified Category: Medical Plan: Patient with significant mitral regurgitation with severe mitral regurgitation secondary to mitral valve prolapse with recurrent hospitalization recently with heart failure exacerbation currently on high high dose Lasix therapy and today clinically looks euvolemic and well optimized. Discussed with her about severe mitral regurgitation potential reason for her recurrent heart failure. Given her multiple comorbidities she will not be a candidate for open repair of mitral valve. However she would be candidate for transcatheter mitral valve repair with MitraClip. This was discussed with her. The process of evaluation and the details of the procedures were discussed. Patient is aware and is willing to consider this at this point time given her recurrent hospitalization with heart failure. Discussed the case with Dr. Dubose at [facility] regarding her and potential for MitraClip procedure. He is going to see the patient in near future. I did upload her images to [facility] for it to be reviewed by him. Heart failure management discussed. Continue current diuretic regimen. Continue aggressive blood pressure control which is currently well optimized. Importance of good blood pressure control was discussed. Low-salt diet was discussed. Daily weight monitoring extra need for Lasix were discussed. Continue COPD optimization. Need for cardiac catheterization was discussed (2) Atrial fibrillation: Comment: - Continue anticoagulation therapy with Eliquis to reduce stroke risk. - Evaluate efficacy of beta-jose therapy in ongoing rate control. - Discuss potential procedural interventions with cardiology to assess the need for further intervention. Code(s): I48.91 - Unspecified atrial fibrillation Category: Medical Qualifiers: Atrial fibrillation type: paroxysmal Qualified Code(s): I48.0 - Paroxysmal atrial fibrillation Plan: Atrial fibrillation unstable without any recurrent events. Continue metoprolol therapy. Continue full oral anticoagulation, currently on Eliquis 5 mg b.i.d.. Quarterly renal function test should be pursued. Continue aggressive blood pressure control. Avoidance of stimulants was discussed. (3) CAD (coronary artery disease): Comment: Asymptomatic leading to coronary artery bypass grafting - Continue cardiac risk management with lipid-lowering treatments and lifestyle modifications. - Discuss potential need for periodic coronary imaging based on symptomatology. Code(s): I25.10 - Atherosclerotic heart disease of [place] coronary artery without angina pectoris Category: Medical Qualifiers: Coronary Disease-Associated Artery/Lesion type: [place] artery [place] vs. transplanted heart: [place] heart Associated angina: without angina Qualified Code(s): I25.10 - Atherosclerotic heart disease of [place] coronary artery without angina pectoris Plan: CAD with prior coronary artery bypass grafting. Continue high-intensity statin therapy. Continue aggressive blood current showed control as above. Will need cardiac catheterization prior to considering mitral intervention. Will follow up in 2-3 months. Greater than 40 minutes was spent in managing complex care and arranging for follow-up consultation. Orders: Orders Cardiac Cath [facility] Diagnostic 2 Weeks I34.0 - Nonrheumatic mitral (valve) insufficiency Referrals Pulmonology Referral J96.10 - Chronic respiratory failure, unspecified whether with hypoxia or hypercapnia Interventional Cardiology Referral I34.0 - Nonrheumatic mitral (valve) insufficiency, I38 - Endocarditis, valve unspecified, I50.9 - Heart failure, unspecified Coding Level of Care Code Est Pt Level 5 (10437) Complex EM visit Add On G2211 Diagnoses Heart failure due to valvular disease I50.9; I38 Paroxysmal atrial fibrillation I48.0 Atrial fibrillation type: paroxysmal Coronary artery disease involving [place] coronary artery of [place] heart without angina pectoris I25.10 Coronary Disease-Associated Artery/Lesion type: [place] artery [place] vs. transplanted heart: [place] heart Associated angina: without angina
[2025-06-10 15:09] VITALS: BP 124/62; PULSE 58; BMI 19.6
--- OUTSIDE RECORDS SUMMARY | 2025-07-02 20:00 | XMS_ITS | Clinical Summary ---
Author Organization Unknown Care Team Providers Care Tare Weigher Name Role Phone EM PAINTER DRUM, BENJAMIN Unavailable Unavailable JARRELL RN, JADA Unavailable Unavailable WILLIAM MCKEONN, KELLY Unavailable Unavailphuc G[employer]ON [employer] BPM DEVELOPER, CHI Unavailable Unavailable KIANA PT, VIDHI Unavailable Unavailable [place]AN OT, LILIYA Unavailable Unavailable SEEMA LUNA, VITALY Unavailable Unavailable Payers Payer Name Policy Type Policy Number Effective Date Expira tion Date MEDICARE.NGS.PDGM [id number] Problems Condition Name Condition Details Condition Category Status Onset Date Resolution Date Last Treatment Date Treating Clinician Comments HYPERTENSIVE HEART DISEASE WITH HEART FAILURE Active 05-03 00:00: 00 ACUTE ON CHRONIC DIASTOLIC (CONGESTIVE) HEART FAILURE Active 2024-08 0-04 00:00: 00 ACUTE AND CHRONIC RESPIRATORY FAILURE WITH HYPOXIA Active 2024-08 0-04 00:00: 00 NONRHEUMATIC MITRAL (VALVE) INSUFFICIENC Y Active 2024-08 0-04 00:00: 00 PAROXYSMAL ATRIAL FIBRILLATION Active 2024-08 0-04 00:00: 00 UNSPECIFIED PROTEIN-CLAUDINE STARR MALNUTRITION Active 2024-08 0-04 00:00: 00 EMPHYSEMA, UNSPECIFIED Active 2024-08 0-04 00:00: 00 PULMONARY HYPERTENSION , UNSPECIFIED Active 2024-08 0-04 00:00: 00 ATHSCL HEART DISEASE OF [place] CORONARY ARTERY W/O ANG PCTRS Active 05-05 00:00: 00 HYPOKALEMIA Active 05-05 00:00: 00 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 Active 05-05 00:00: 00 HYPERLIPIDEM IA, UNSPECIFIED Active 05-05 00:00: 00 AGE-RELATED OSTEOPOROSIS W/O CURRENT PATHOLOGICAL FRACTURE Active 05-05 00:00: 00 PRESENCE OF AORTOCORONAR Y BYPASS GRAFT Active 05-05 00:00: 00 PERSONAL HISTORY OF PULMONARY EMBOLISM Active 05-05 00:00: 00 LONG-TERM (CURRENT) USE OF ANTICOAGULAN TS Active 05-05 00:00: 00 LOADING UNIT OPERATOR (CURRENT) USE OF BISPHOSPHONA JULIANNA Active 05-05 00:00: 00 LOADING UNIT OPERATOR (CURRENT) USE OF ASPIRIN Active 05-05 00:00: 00 DEPENDENCE ON SUPPLEMENTAL OXYGEN Active 2024-08 00:00: 00 PERSONAL HISTORY OF NICOTINE DEPENDENCE Active 08-19 00:00: 00 Allergies, Adverse Reactions, Alerts Allergy Name Allergy Type Status Severity Reaction(s) Onset Date Inactive Date Treating Clinician Comments NO KNOWN ALLERGIES Propensity to adverse reactions Active 05-05 11:37: 58 Medications Ordered Medication Name Filled Medication Name Start Date Stop Date Current Medication? Ordering Clinician Indication Dosage Frequency Signature (SIG) Comments Components furosemide 20 mg tablet 05-04 00:00: 00 05-30 00:00 :00 No [id number] FLUID RETENTION 1 tablet DAILY 1 tablet DAILY (route: oral) Med Classific ation: Cardiovas cular Therapy Agents alendronate 70 mg tablet 04-21 00:00: 00 Yes [id number] CALCIUM 1 tablet WEEKLY 1 tablet WEEKLY (route: oral) Med Classific ation: Endocrine furosemide 40 mg tablet 04-16 00:00: 00 05-30 00:00 :00 No [id number] FLUID RETENTION 1 tablet DAILY 1 tablet DAILY (route: oral) Med Classific ation: Cardiovas cular Therapy Agents isosorbide mononitrate ER 30 mg tablet,exte nded release 24 hr 04-16 00:00: 00 05-13 23:59 :00 No [id number] CHEST PAIN 1 tablet 2 TIMES A WEEK 1 tablet 2 TIMES A WEEK (route: oral) Med Classific ation: Cardiovas cular Therapy Agents amlodipine 10 mg tablet 05-05 00:00: 00 05-13 23:59 :00 No [id number] BLOOD PRESSURE 1 tablet DAILY 1 tablet DAILY (route: oral) Med Classific ation: Cardiovas cular Therapy Agents Aspirin Childrens 81 mg chewable tablet 05-05 00:00: 00 Yes [id number] BLOOD THINNER 1 tablet DAILY 1 tablet DAILY (route: oral) Med Classific ation: Hematolog ical Agents atorvastati n 80 mg tablet 05-05 00:00: 00 Yes [id number] HIGH CHOLESTROL 1 tablet DAILY 1 tablet DAILY (route: oral) Med Classific ation: Cardiovas cular Therapy Agents Eliquis 2.5 mg tablet 05-05 00:00: 00 05-13 23:59 :00 No [id number] BLOOD THINNER 1 tablet 2 TIMES DAILY 1 tablet 2 TIMES DAILY (route: oral) Med Classific ation: Hematolog ical Agents enalapril maleate 20 mg tablet 05-05 00:00: 00 Yes [id number] BLOOD PRESSURE 1 tablet DAILY 1 tablet DAILY (route: oral) Med Classific ation: Cardiovas cular Therapy Agents metoprolol succinate ER 100 mg tablet,exte nded release 24 hr 05-05 00:00: 00 Yes [id number] HEART RATE 1 tablet DAILY 1 tablet DAILY (route: oral) Med Classific ation: Cardiovas cular Therapy Agents Plavix 75 mg tablet 05-05 00:00: 00 05-13 23:59 :00 No [id number] BLOOD CLOT PREVENTION 1 tablet 2 TIMES A WEEK 1 tablet 2 TIMES A WEEK (route: oral) Med Classific ation: Hematolog ical Agents isosorbide mononitrate ER 30 mg tablet,exte nded release 24 hr 05-13 00:00: 00 Yes [id number] ANGINA 1 tablet DAILY 1 tablet DAILY (route: oral) Med Classific ation: Cardiovas cular Therapy Agents oxygen gas for inhalation 05-13 00:00: 00 Yes [id number] RESPIRATORY FAILURE 1 Liter O2 - CONTINUOUS 1 Liter O2 - CONTINUOUS (route: inhalation ) Med Classific ation: Medical Supplies and Durable Medical Equipment (DME) oxygen gas for inhalation 2024-08 00:00: 00 Yes [id number] RESPIRATORY FAILURE 2 Liter O2 - CONTINUOUS 2 Liter O2 - CONTINUOUS (route: inhalation ) Med Classific ation: Medical Supplies and Durable Medical Equipment (DME) Eliquis 5 mg tablet 2024-08 00:00: 00 Yes [id number] PREVENT CLOTS 1 tablet 2 TIMES DAILY 1 tablet 2 TIMES DAILY (route: oral) Med Classific ation: Hematolog ical Agents furosemide 40 mg tablet 2024-08 0 00:00: 00 Yes [id number] CHF 1 tablet 2 TIMES DAILY 1 tablet 2 TIMES DAILY (route: oral) Med Classific ation: Cardiovas cular Therapy Agents metoprolol succinate ER 50 mg tablet,exte nded release 24 hr 2024-08 0 00:00: 00 Yes [id number] AFIB 1 tablet DAILY 1 tablet DAILY (route: oral) Med Classific ation: Cardiovas cular Therapy Agents Vital Signs Vital Name Observation Time Observation Value Commen ts Temperature 2025-06-09 12:09:00.000 97 [degF] Temperature 2025-06-03 14:29:00.000 96.8 [degF] Temperature 2025-06-02 12:56:00.000 96.9 [degF] Temperature 2025-05-30 11:32:00.000 97.7 [degF] Temperature 2025-05-20 11:53:00.000 96.9 [degF] Temperature 2025-05-18 17:59:00.000 97.5 [degF] Temperature 2025-05-13 14:59:00.000 97 [degF] Temperature 2025-05-13 12:58:00.000 97.1 [degF] Temperature 2025-05-13 10:26:00.000 97.3 [degF] Temperature 2025-05-11 13:35:00.000 96.4 [degF] Temperature 2025-05-05 11:32:00.000 97.4 [degF] BMI (%) 2025-05-30 11:32:00.000 17 kg/m2 BMI (%) 2025-05-05 11:10:35.000 16 kg/m2 Height 2025-05-30 11:32:00.000 61 [in_us] Height 2025-05-05 11:10:27.000 61 [in_us] Pulse 2025-06-09 12:09:00.000 70 /min Pulse 2025-06-03 14:29:00.000 60 /min Pulse 2025-06-02 12:56:00.000 60 /min Pulse 2025-05-30 11:32:00.000 60 /min Pulse 2025-05-20 11:53:00.000 63 /min Pulse 2025-05-18 17:59:00.000 83 /min Pulse 2025-05-13 14:59:00.000 61 /min Pulse 2025-05-13 12:58:00.000 63 /min Pulse 2025-05-13 10:26:00.000 60 /min Pulse 2025-05-11 13:35:00.000 60 /min Pulse 2025-05-05 11:32:00.000 77 /min O2 Saturation (%) 2025-06-09 12:09:00.000 97 % O2 Saturation (%) 2025-06-03 14:29:00.000 99 % O2 Saturation (%) 2025-06-02 12:56:00.000 99 % O2 Saturation (%) 2025-05-30 11:34:00.000 94 % O2 Saturation (%) 2025-05-20 11:53:00.000 95 % O2 Saturation (%) 2025-05-18 17:59:00.000 98 % O2 Saturation (%) 2025-05-13 14:59:00.000 98 % O2 Saturation (%) 2025-05-13 12:58:00.000 99 % O2 Saturation (%) 2025-05-13 10:26:00.000 94 % O2 Saturation (%) 2025-05-11 13:35:00.000 98 % O2 Saturation (%) 2025-05-05 11:32:00.000 96 % Respirations 2025-06-09 12:09:00.000 16 /min Respirations 2025-06-03 14:29:00.000 17 /min Respirations 2025-06-02 12:56:00.000 16 /min Respirations 2025-05-30 11:32:00.000 16 /min Respirations 2025-05-20 11:53:00.000 18 /min Respirations 2025-05-18 17:59:00.000 16 /min Respirations 2025-05-13 14:59:00.000 18 /min Respirations 2025-05-13 12:58:00.000 18 /min Respirations 2025-05-13 10:26:00.000 16 /min Respirations 2025-05-11 13:35:00.000 18 /min Respirations 2025-05-05 11:32:00.000 16 /min Weight (lbs) 2025-06-09 12:09:00.000 91 [lb_av] Weight (lbs) 2025-06-03 14:32:00.000 90.6 [lb_av] Weight (lbs) 2025-06-02 12:56:00.000 89 [lb_av] Weight (lbs) 2025-05-30 11:32:00.000 90 [lb_av] Weight (lbs) 2025-05-20 11:55:00.000 89.8 [lb_av] Weight (lbs) 2025-05-18 17:59:00.000 90 [lb_av] Weight (lbs) 2025-05-13 15:04:00.000 89.4 [lb_av] Weight (lbs) 2025-05-13 12:58:00.000 89 [lb_av] Weight (lbs) 2025-05-13 10:26:00.000 89.8 [lb_av] Weight (lbs) 2025-05-11 13:36:00.000 88.8 [lb_av] Weight (lbs) 2025-05-05 11:10:35.000 89 [lb_av] Systolic Blood Pressure 2025-06-09 12:09:00.000 106 mm [Hg] Systolic Blood Pressure 2025-06-03 14:29:00.000 129 mm [Hg] Systolic Blood Pressure 2025-06-02 12:56:00.000 124 mm [Hg] Systolic Blood Pressure 2025-05-30 11:32:00.000 120 mm [Hg] Systolic Blood Pressure 2025-05-20 11:53:00.000 128 mm [Hg] Systolic Blood Pressure 2025-05-18 17:59:00.000 130 mm [Hg] Systolic Blood Pressure 2025-05-13 14:59:00.000 122 mm [Hg] Systolic Blood Pressure 2025-05-13 12:58:00.000 110 mm [Hg] Systolic Blood Pressure 2025-05-13 10:26:00.000 100 mm [Hg] Systolic Blood Pressure 2025-05-11 13:35:00.000 130 mm [Hg] Systolic Blood Pressure 2025-05-05 11:32:00.000 112 mm [Hg] Diastolic Blood Pressure 2025-06-09 12:09:00.000 70 mm [Hg] Diastolic Blood Pressure 2025-06-03 14:29:00.000 79 mm [Hg] Diastolic Blood Pressure 2025-06-02 12:56:00.000 68 mm [Hg] Diastolic Blood Pressure 2025-05-30 11:32:00.000 74 mm [Hg] Diastolic Blood Pressure 2025-05-20 11:53:00.000 80 mm [Hg] Diastolic Blood Pressure 2025-05-18 17:59:00.000 70 mm [Hg] Diastolic Blood Pressure 2025-05-13 14:59:00.000 70 mm [Hg] Diastolic Blood Pressure 2025-05-13 12:58:00.000 70 mm [Hg] Diastolic Blood Pressure 2025-05-13 10:26:00.000 60 mm [Hg] Diastolic Blood Pressure 2025-05-11 13:35:00.000 80 mm [Hg] Diastolic Blood Pressure 2025-05-05 11:32:00.000 80 mm [Hg] Plan of Treatment Planned Activity Planned Date Details Comments Future Scheduled Test RN TO OBSE RVE, ASSESS, EVALUATE, AND DEVELOP AN INDIVIDUALIZED PLAN OF CARE. AGENCY MAY ACCEPT ORDERS FROM CONSULTING PHYSICIANS. RN TO OBSERVE AND ASSESS, CANCER REGISTRY COORDINATOR/BIOPROCESSING MANUFACTURING TECHNICIAN TO OBSERVE FOR RISK FOR FALLS AND INSTRUCT IN FALL PREVENTION, HOME SAFETY, MEDICATION MANAGEMENT, INFECTION PREVENTION, AND NUTRITION MANAGEMENT. RN/CANCER REGISTRY COORDINATOR/BIOPROCESSING MANUFACTURING TECHNICIAN NURSE MAY PERFORM O2 SATURATION LEVEL ON ADMISSION AND PRN FOR RN TO ASSESS/CANCER REGISTRY COORDINATOR TO OBSERVE PATIENT, WITH NOTIFICATION TO THE PHYSICIAN IF SATURATION IS 90% IN THE ABSENCE OF MORE SPECIFIC PARAMETERS FROM THE PHYSICIAN. AGENCY MAY PERFORM A RESUMPTION OF CARE VISIT FOLLOWING ANY HOSPITAL ADMISSION. RN/CANCER REGISTRY COORDINATOR/BIOPROCESSING MANUFACTURING TECHNICIAN TO MONITOR CO-MORBID CONDITIONS LISTED ON THE PLAN OF CARE AND ANY NEW CONDITIONS THAT PRESENT THEMSELVES DURING THIS EPISODE TO IDENTIFY CHANGES AND INTERVENE TO MINIMIZE COMPLICATIONS. [code = RN TO OBSERVE, ASSESS, EVALUATE, AND DEVELOP AN INDIVIDUALIZED PLAN OF CARE. AGENCY MAY ACCEPT ORDERS FROM CONSULTING PHYSICIANS. RN TO OBSERVE AND ASSESS, CANCER REGISTRY COORDINATOR/BIOPROCESSING MANUFACTURING TECHNICIAN TO OBSERVE FOR RISK FOR FALLS AND INSTRUCT IN FALL PREVENTION, HOME SAFETY, MEDICATION MANAGEMENT, INFECTION PREVENTION, AND NUTRITION MANAGEMENT. RN/CANCER REGISTRY COORDINATOR/BIOPROCESSING MANUFACTURING TECHNICIAN NURSE MAY PERFORM O2 SATURATION LEVEL ON ADMISSION AND PRN FOR RN TO ASSESS/CANCER REGISTRY COORDINATOR TO OBSERVE PATIENT, WITH NOTIFICATION TO THE PHYSICIAN IF SATURATION IS 90% IN THE ABSENCE OF MORE SPECIFIC PARAMETERS FROM THE PHYSICIAN. AGENCY MAY PERFORM A RESUMPTION OF CARE VISIT FOLLOWING ANY HOSPITAL ADMISSION. RN/CANCER REGISTRY COORDINATOR/BIOPROCESSING MANUFACTURING TECHNICIAN TO MONITOR CO-MORBID CONDITIONS LISTED ON THE PLAN OF CARE AND ANY NEW CONDITIONS THAT PRESENT THEMSELVES DURING THIS EPISODE TO IDENTIFY CHANGES AND INTERVENE TO MINIMIZE COMPLICATIONS.] Future Scheduled Test CARDIOVASC ULAR SYSTEM; RN TO ASSESS/TEACH, CANCER REGISTRY COORDINATOR/BIOPROCESSING MANUFACTURING TECHNICIAN TO OBSERVE/TEACH RELATED TO ALTERED CARDIOVASCULAR STATUS TO MINIMIZE COMPLICATIONS AND REDUCE HOSPITALIZATION. [code = CARDIOVASCULAR SYSTEM; RN TO ASSESS/TEACH, CANCER REGISTRY COORDINATOR/BIOPROCESSING MANUFACTURING TECHNICIAN TO OBSERVE/TEACH RELATED TO ALTERED CARDIOVASCULAR STATUS TO MINIMIZE COMPLICATIONS AND REDUCE HOSPITALIZATION.] Future Scheduled Test HEART FAIL URE; RN TO ASSESS/TEACH, CANCER REGISTRY COORDINATOR/BIOPROCESSING MANUFACTURING TECHNICIAN TO OBSERVE/TEACH CARDIOPULMONARY SYSTEM TO IDENTIFY SIGNS OF DECOMPENSATION AND INTERVENE TO MINIMIZE THE SEVERITY OF FLUID OVERLOAD. OBSERVE PATIENT ABILITY TO MONITOR AND RECORD DAILY WEIGHTS AND VITAL SIGNS, INCLUDING PULSE AND BLOOD PRESSURE; RECORD PATIENT REPORTED WEIGHT, OR WEIGH PATIENT NEEDED. REPORT INCREASED EDEMA OR WEIGHT GAIN OF >2 LBS IN 1 DAY OR >5 LBS IN 1 WEEK OR 5LBS OR MORE OVER TARGET WEIGHT. MAY MEASURE ABDOMINAL GIRTH IF UNABLE TO WEIGH. SCALES AND BP MONITOR TO BE PROVIDED IF NEEDED. [code = HEART FAILURE; RN TO ASSESS/TEACH, CANCER REGISTRY COORDINATOR/BIOPROCESSING MANUFACTURING TECHNICIAN TO OBSERVE/TEACH CARDIOPULMONARY SYSTEM TO IDENTIFY SIGNS OF DECOMPENSATION AND INTERVENE TO MINIMIZE THE SEVERITY OF FLUID OVERLOAD. OBSERVE PATIENT ABILITY TO MONITOR AND RECORD DAILY WEIGHTS AND VITAL SIGNS, INCLUDING PULSE AND BLOOD PRESSURE; RECORD PATIENT REPORTED WEIGHT, OR WEIGH PATIENT NEEDED. REPORT INCREASED EDEMA OR WEIGHT GAIN OF >2 LBS IN 1 DAY OR >5 LBS IN 1 WEEK OR 5LBS OR MORE OVER TARGET WEIGHT. MAY MEASURE ABDOMINAL GIRTH IF UNABLE TO WEIGH. SCALES AND BP MONITOR TO BE PROVIDED IF NEEDED.] Future Scheduled Test RESPIRATOR Y SYSTEM MANAGEMENT; RN TO ASSESS AND TEACH, CANCER REGISTRY COORDINATOR/BIOPROCESSING MANUFACTURING TECHNICIAN TO OBSERVE AND TEACH RELATED TO ALTERED RESPIRATORY STATUS TO MINIMIZE COMPLICATIONS AND REDUCE HOSPITALIZATION. [code = RESPIRATORY SYSTEM MANAGEMENT; RN TO ASSESS AND TEACH, CANCER REGISTRY COORDINATOR/BIOPROCESSING MANUFACTURING TECHNICIAN TO OBSERVE AND TEACH RELATED TO ALTERED RESPIRATORY STATUS TO MINIMIZE COMPLICATIONS AND REDUCE HOSPITALIZATION.] Future Scheduled Test OXYGEN THE RAPY; RN/CANCER REGISTRY COORDINATOR/BIOPROCESSING MANUFACTURING TECHNICIAN TO INSTRUCT ON OXYGEN MANAGEMENT INCLUDING: ADMINISTRATION AT 1L/MIN VIA NASAL CANNULA CONTINUOUS, CARE OF EQUIPMENT AND SAFETY. [code = OXYGEN THERAPY; RN/CANCER REGISTRY COORDINATOR/BIOPROCESSING MANUFACTURING TECHNICIAN TO INSTRUCT ON OXYGEN MANAGEMENT INCLUDING: ADMINISTRATION AT 1L/MIN VIA NASAL CANNULA CONTINUOUS, CARE OF EQUIPMENT AND SAFETY.] Future Scheduled Test PAIN MANAG EMENT; RN TO ASSESS AND TEACH, BIOPROCESSING MANUFACTURING TECHNICIAN/CANCER REGISTRY COORDINATOR TO OBSERVE AND TEACH AND PROVIDE EDUCATION ON PAIN MANAGEMENT TECHNIQUES. [code = PAIN MANAGEMENT; RN TO ASSESS AND TEACH, BIOPROCESSING MANUFACTURING TECHNICIAN/CANCER REGISTRY COORDINATOR TO OBSERVE AND TEACH AND PROVIDE EDUCATION ON PAIN MANAGEMENT TECHNIQUES.] Future Scheduled Test MEDICATION MANAGEMENT; RN/CANCER REGISTRY COORDINATOR/BIOPROCESSING MANUFACTURING TECHNICIAN TO REVIEW MEDICATIONS FOR INTERACTIONS, EFFECTIVENESS OF DRUG THERAPY, AND SIGNS/SYMPTOMS OF ADVERSE REACTIONS. MAY INSTRUCT AND REINFORCE MEDICATION TEACHING RELATED TO THE USE OF MEDICATIONS, DOSAGE, FREQUENCY, PURPOSE, SIDE EFFECTS, AND TO REPORT COMPLICATIONS. [code = MEDICATION MANAGEMENT; RN/CANCER REGISTRY COORDINATOR/BIOPROCESSING MANUFACTURING TECHNICIAN TO REVIEW MEDICATIONS FOR INTERACTIONS, EFFECTIVENESS OF DRUG THERAPY, AND SIGNS/SYMPTOMS OF ADVERSE REACTIONS. MAY INSTRUCT AND REINFORCE MEDICATION TEACHING RELATED TO THE USE OF MEDICATIONS, DOSAGE, FREQUENCY, PURPOSE, SIDE EFFECTS, AND TO REPORT COMPLICATIONS.] Future Scheduled Test FALL REDUC TION MANAGEMENT; RN TO ASSESS AND OBSERVE, CANCER REGISTRY COORDINATOR/BIOPROCESSING MANUFACTURING TECHNICIAN TO OBSERVE FALL RISK FACTORS AND EDUCATE PATIENT/CAREGIVER ON STRATEGIES TO MINIMIZE THE RISK OF FALLING. [code = FALL REDUCTION MANAGEMENT; RN TO ASSESS AND OBSERVE, CANCER REGISTRY COORDINATOR/BIOPROCESSING MANUFACTURING TECHNICIAN TO OBSERVE FALL RISK FACTORS AND EDUCATE PATIENT/CAREGIVER ON STRATEGIES TO MINIMIZE THE RISK OF FALLING.] Future Scheduled Test PHYSICAL T HERAPIST TO EVALUATE FOR SAFETY. [code = PHYSICAL THERAPIST TO EVALUATE FOR SAFETY.] Future Scheduled Test OCCUPATION AL THERAPIST TO EVALUATE FOR O2 SAFETY AND ADLS AND IADLS. [code = OCCUPATIONAL THERAPIST TO EVALUATE FOR O2 SAFETY AND ADLS AND IADLS.] Goal 2025-05-30 Patient Goal - T O GET BETTER AND OFF THE OXYGEN Goal Patient Goal - T O GET BETTER AND OFF THE OXYGEN Goal Provider Goal - A PLAN OF CARE WILL BE ESTABLISHED THAT MEETS THE PATIENT S NEEDS. PATIENT WILL DEMONSTRATE OXYGEN SATURATION WITHIN NORMAL LIMITS OR PATIENT S OPTIMAL LEVEL ESTABLISHED BY THE PHYSICIAN THROUGHOUT CARE. CHANGES TO CO-MORBID CONDITIONS AND ANY NEW CONDITIONS WILL BE IDENTIFIED AND REPORTED TO THE PHYSICIAN. Goal Provider Goal - PATIENT / CAREGIVER WILL VERBALIZE/DEMONSTRATE UNDERSTANDING OF MEASURES TO MANAGE ALTERED CARDIOVASCULAR STATUS BY END OF EPISODE. Goal Provider Goal - PATIENT / CAREGIVER WILL VERBALIZE/DEMONSTRATE AN ABILITY TO ADHERE TO SELF-MANAGEMENT OF HF TO MINIMIZE COMPLICATIONS AND AVOID HOSPITALIZATION BY END OF EPISODE. Goal Provider Goal - PATIENT / CAREGIVER WILL VERBALIZE/DEMONSTRATE UNDERSTANDING OF MEASURES TO MANAGE ALTERED RESPIRATORY STATUS BY END OF EPISODE. Goal Provider Goal - PATIENT/CAREGIVER WILL VERBALIZE/DEMONSTRATE UNDERSTANDING OF CARE AND MANAGEMENT OF OXYGEN THERAPY BY END OF EPISODE Goal Provider Goal - PATIENT / CAREGIVER WILL VERBALIZE / DEMONSTRATE UNDERSTANDING OF PAIN CONTROL MEASURES BY END OF EPISODE. Goal Provider Goal - PATIENT/CAREGIVER TO VERBALIZE, AND CONSISTENTLY DEMONSTRATE EFFECTIVE, SAFE MANAGEMENT OF MEDICATION INCLUDING KNOWLEDGE OF EFFECTIVENESS, POTENTIAL SIDE EFFECTS AND DRUG REACTIONS AND WHEN TO CONTACT THE APPROPRIATE CARE PROVIDER. PATIENT/CAREGIVER WILL BE ABLE TO VERBALIZE UNDERSTANDING OF MEDICATION REGIMEN AND ACCURATELY TAKE MEDICATIONS PRESCRIBED WITHOUT ADVERSE EFFECTS BY END OF EPISODE. Goal Provider Goal - PATIENT/CAREGIVER WILL VERBALIZE/DEMONSTRATE UNDERSTANDING OF FALL RISK FACTORS AND IMPLEMENT STRATEGIES TO MINIMIZE FALL RISK. PATIENT/CAREGIVER WILL VERBALIZE/DEMONSTRATE AN ABILITY TO ADHERE TO FALL REDUCTION SELF-MANAGEMENT AND LIFE-STYLE CHANGES BY END OF EPISODE. Goal Provider Goal - Goal Provider Goal - Progress Notes Progress Notes <paragraph>[Visit Date: 2024 by KELLY THOMAS LPN]:</paragraph><paragraph>SKILLED NURSE VISIT. PATIENT LIVES WITH HER SPOUSE IN A SINGLE FAMILY HOME. SPOUSE IS SUPPORTIVE AND INVOLVED WITH PLAN OF CARE. PATIENT ALERT AND ORIENTED X3 GROOMED AND DRESSED, PLEASANT, AND COOPERATIVE WITH VISIT.</paragraph><paragraph></paragraph><paragraph>PATIENT WAS SEEN BY HER NEW PCP DR. EMMA INTERIANO ON 06/08/25. NO NEW ORDERS. PATIENT HAD AN ECHOCARDIOGRAM ON 06/07/25 AND HAS A FOLLOW UP WITH ROTARY SOIL STABILIZER OPERATOR DR. SHEEHAN ON 06/10/25 FOR RESULTS. </paragraph><paragraph></paragraph><paragraph>VITAL SIGNS WITHIN NORMAL LIMITS. PATIENT DENIES PAIN AT THIS VISIT. LUNG GRIGGS CLEAR BILATERALLY. O2 RUNNING AT 2 LITERS PER MINUTE. SAO2 97%. PATIENT DENIES COUGH AND SHORTNESS OF BREATH. BOWEL SOUNDS PRESENT X4, LAST BM TODAY. REPORTS GOOD APPETITE. WEIGHT STABLE AT 91 LBS. NO PEDAL EDEMA NOTED. NO FALLS REPORTED. NO CHANGES TO MEDICATIONS. </paragraph><paragraph></paragraph><paragraph>PATIENT IS HOMEBOUND DUE TO UNSTEADY GAIT AND POOR ENDURANCE AND REQUIRES ASSISTANCE OF ONE CAREGIVER TO SAFELY LEAVE HOME. PATIENT CONTINUES TO REQUIRE HALFWAY SERVICES FOR MONITORING OF CARDIOVASCULAR AND PULMONARY STATUS.</paragraph> Encounters Start Date/Time End Date/Time Encounter Type Admission Type Attending [facility] Care Department Encounter ID Discharge Date Discharge Status Discharge Condition Discharge Reason Percent Goals Met 2025-05-05 00:00:00 2025-07-03 00:00:00 Outpatient NEW ADMISSION [facility] [id number] 36.36
--- OUTSIDE RECORDS SUMMARY | 2025-07-02 20:00 | XMS_ITS | Clinical Summary ---
Author Organization Unknown Care Team Providers Care Food And Nutrition Supervisor Name Role Phone EM CLAIM REVIEW MEDICAL DIRECTOR, BENJAMIN Unavailable Unavailable JARRELL RN, JADA Unavailable Unavailable WILLIAM MCKEONN, KELLY Unavailable Unavailphuc GASTON BUSINESS SEGMENT MANAGER, CHI Unavailable Unavailable KIANA PT, VIDHI Unavailable Unavailable [place] OT, LILIYA Unavailable Unavailable SEEMA LUNA, VITALY Unavailable Unavailable Payers Payer Name Policy Type Policy Number Effective Date Expira tion Date MEDICARE.NGS.PDGM [id number] Problems Condition Name Condition Details Condition Category [...] 0-04 00:00: 00 ATHSCL HEART DISEASE OF [place] CORONARY ARTERY W/O ANG PCTRS Active 05-05 00:00: 00 HYPOKALEMIA Active 05-05 00:00: 00 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 Active 05-05 00:00: 00 HYPERLIPIDEM IA, UNSPECIFIED Active 05-05 00:00: 00 AGE-RELATED OSTEOPOROSIS W/O CURRENT PATHOLOGICAL FRACTURE Active 05-05 00:00: 00 PRESENCE OF AORTOCORONAR Y BYPASS GRAFT Active 05-05 00:00: 00 PERSONAL HISTORY OF PULMONARY EMBOLISM Active 05-05 00:00: 00 USP (CURRENT) USE OF ANTICOAGULAN TS Active 05-05 00:00: 00 MANUFACTURING MANAGER (CURRENT) USE OF BISPHOSPHONA JULIANNA Active 05-05 00:00: 00 MANUFACTURING MANAGER (CURRENT) USE OF ASPIRIN Active 05-05 00:00: [...] 05-04 00:00: 00 05-30 00:00 :00 No [id number] FLUID RETENTION 1 tablet DAILY 1 tablet DAILY (route: oral) Med Classific ation: Cardiovas cular Therapy Agents alendronate 70 mg tablet 04-21 00:00: 00 Yes [id number] CALCIUM 1 tablet WEEKLY 1 tablet WEEKLY (route: oral) Med Classific ation: Endocrine furosemide 40 mg tablet 04-16 00:00: 00 05-30 00:00 :00 No [id number] FLUID RETENTION 1 tablet DAILY 1 tablet DAILY (route: oral) Med Classific ation: Cardiovas cular Therapy Agents isosorbide mononitrate ER 30 mg tablet,exte nded release 24 hr 04-16 00:00: 00 05-13 23:59 :00 No [id number] CHEST PAIN 1 tablet 2 TIMES A WEEK 1 tablet 2 TIMES A WEEK (route: oral) Med Classific ation: Cardiovas cular Therapy Agents amlodipine 10 mg tablet 05-05 00:00: 00 05-13 23:59 :00 No [id number] BLOOD PRESSURE 1 tablet DAILY 1 tablet DAILY (route: oral) Med Classific ation: Cardiovas cular Therapy Agents Aspirin Childrens 81 mg chewable tablet 05-05 00:00: 00 Yes [id number] BLOOD THINNER 1 tablet DAILY 1 tablet DAILY (route: oral) Med Classific ation: Hematolog ical Agents atorvastati n 80 mg tablet 05-05 00:00: 00 Yes [id number] HIGH CHOLESTROL 1 tablet DAILY 1 tablet DAILY (route: oral) Med Classific ation: Cardiovas cular Therapy Agents Eliquis 2.5 mg tablet 05-05 00:00: 00 05-13 23:59 :00 No [id number] BLOOD THINNER 1 tablet 2 TIMES DAILY 1 tablet 2 TIMES DAILY (route: oral) Med Classific ation: Hematolog ical Agents enalapril maleate 20 mg tablet 05-05 00:00: 00 Yes [id number] BLOOD PRESSURE 1 tablet DAILY 1 tablet DAILY (route: oral) Med Classific ation: Cardiovas cular Therapy Agents metoprolol succinate ER 100 mg tablet,exte nded release 24 hr 05-05 00:00: 00 Yes [id number] HEART RATE 1 tablet DAILY 1 tablet DAILY (route: oral) Med Classific ation: Cardiovas cular Therapy Agents Plavix 75 mg tablet 05-05 00:00: 00 05-13 23:59 :00 No [id number] BLOOD CLOT PREVENTION 1 tablet 2 TIMES A WEEK 1 tablet 2 TIMES A WEEK (route: oral) Med Classific ation: Hematolog ical Agents isosorbide mononitrate ER 30 mg tablet,exte nded release 24 hr 05-13 00:00: 00 Yes [id number] ANGINA 1 tablet DAILY 1 tablet DAILY (route: oral) Med Classific ation: Cardiovas cular Therapy Agents oxygen gas for inhalation 05-13 00:00: 00 Yes [id number] RESPIRATORY FAILURE 1 Liter O2 - CONTINUOUS 1 Liter O2 - CONTINUOUS (route: inhalation ) Med Classific ation: Medical Supplies and Durable Medical Equipment (DME) oxygen gas for inhalation 2024-08 00:00: 00 Yes [id number] RESPIRATORY FAILURE 2 Liter O2 - CONTINUOUS 2 Liter O2 - CONTINUOUS (route: inhalation ) Med Classific ation: Medical Supplies and Durable Medical Equipment (DME) Eliquis 5 mg tablet 2024-08 00:00: 00 Yes [id number] PREVENT CLOTS 1 tablet 2 TIMES DAILY 1 tablet 2 TIMES DAILY (route: oral) Med Classific ation: Hematolog ical Agents furosemide 40 mg tablet 2024-08 0 00:00: 00 Yes [id number] CHF 1 tablet 2 TIMES DAILY 1 tablet 2 TIMES DAILY (route: oral) Med Classific ation: Cardiovas cular Therapy Agents metoprolol succinate ER 50 mg tablet,exte nded release 24 hr 2024-08 0 00:00: 00 Yes [id number] AFIB 1 tablet DAILY 1 tablet DAILY [...] CONSULTING PHYSICIANS. RN TO OBSERVE AND ASSESS, SENIOR MANUFACTURING SUPERVISOR/SEASONAL PACKAGE HANDLER TO OBSERVE FOR RISK FOR FALLS AND INSTRUCT IN FALL PREVENTION, HOME SAFETY, MEDICATION MANAGEMENT, INFECTION PREVENTION, AND NUTRITION MANAGEMENT. RN/SENIOR MANUFACTURING SUPERVISOR/SEASONAL PACKAGE HANDLER NURSE MAY PERFORM O2 SATURATION LEVEL ON ADMISSION AND PRN FOR RN TO ASSESS/SENIOR MANUFACTURING SUPERVISOR TO OBSERVE PATIENT, WITH NOTIFICATION TO THE PHYSICIAN IF SATURATION IS 90% IN THE ABSENCE OF MORE SPECIFIC PARAMETERS FROM THE PHYSICIAN. AGENCY MAY PERFORM A RESUMPTION OF CARE VISIT FOLLOWING ANY HOSPITAL ADMISSION. RN/SENIOR MANUFACTURING SUPERVISOR/SEASONAL PACKAGE HANDLER TO MONITOR CO-MORBID CONDITIONS LISTED ON THE PLAN OF CARE AND ANY NEW CONDITIONS THAT PRESENT THEMSELVES DURING THIS EPISODE TO IDENTIFY CHANGES AND INTERVENE TO MINIMIZE COMPLICATIONS. [code = RN TO OBSERVE, ASSESS, EVALUATE, AND DEVELOP AN INDIVIDUALIZED PLAN OF CARE. AGENCY MAY ACCEPT ORDERS FROM CONSULTING PHYSICIANS. RN TO OBSERVE AND ASSESS, SENIOR MANUFACTURING SUPERVISOR/SEASONAL PACKAGE HANDLER TO OBSERVE FOR RISK FOR FALLS AND INSTRUCT IN FALL PREVENTION, HOME SAFETY, MEDICATION MANAGEMENT, INFECTION PREVENTION, AND NUTRITION MANAGEMENT. RN/SENIOR MANUFACTURING SUPERVISOR/SEASONAL PACKAGE HANDLER NURSE MAY PERFORM O2 SATURATION LEVEL ON ADMISSION AND PRN FOR RN TO ASSESS/SENIOR MANUFACTURING SUPERVISOR TO OBSERVE PATIENT, WITH NOTIFICATION TO THE PHYSICIAN IF SATURATION IS 90% IN THE ABSENCE OF MORE SPECIFIC PARAMETERS FROM THE PHYSICIAN. AGENCY MAY PERFORM A RESUMPTION OF CARE VISIT FOLLOWING ANY HOSPITAL ADMISSION. RN/SENIOR MANUFACTURING SUPERVISOR/SEASONAL PACKAGE HANDLER TO MONITOR CO-MORBID CONDITIONS LISTED ON THE PLAN OF CARE AND ANY NEW CONDITIONS THAT PRESENT THEMSELVES DURING THIS EPISODE TO IDENTIFY CHANGES AND INTERVENE TO MINIMIZE COMPLICATIONS.] Future Scheduled Test CARDIOVASC ULAR SYSTEM; RN TO ASSESS/TEACH, SENIOR MANUFACTURING SUPERVISOR/SEASONAL PACKAGE HANDLER TO OBSERVE/TEACH RELATED TO ALTERED CARDIOVASCULAR STATUS TO MINIMIZE COMPLICATIONS AND REDUCE HOSPITALIZATION. [code = CARDIOVASCULAR SYSTEM; RN TO ASSESS/TEACH, SENIOR MANUFACTURING SUPERVISOR/SEASONAL PACKAGE HANDLER TO OBSERVE/TEACH RELATED TO ALTERED CARDIOVASCULAR STATUS TO MINIMIZE COMPLICATIONS AND REDUCE HOSPITALIZATION.] Future Scheduled Test HEART FAIL URE; RN TO ASSESS/TEACH, SENIOR MANUFACTURING SUPERVISOR/SEASONAL PACKAGE HANDLER TO OBSERVE/TEACH CARDIOPULMONARY SYSTEM TO IDENTIFY SIGNS [...] [code = HEART FAILURE; RN TO ASSESS/TEACH, SENIOR MANUFACTURING SUPERVISOR/SEASONAL PACKAGE HANDLER TO OBSERVE/TEACH CARDIOPULMONARY SYSTEM TO IDENTIFY SIGNS [...] SYSTEM MANAGEMENT; RN TO ASSESS AND TEACH, SENIOR MANUFACTURING SUPERVISOR/SEASONAL PACKAGE HANDLER TO OBSERVE AND TEACH RELATED TO ALTERED RESPIRATORY STATUS TO MINIMIZE COMPLICATIONS AND REDUCE HOSPITALIZATION. [code = RESPIRATORY SYSTEM MANAGEMENT; RN TO ASSESS AND TEACH, SENIOR MANUFACTURING SUPERVISOR/SEASONAL PACKAGE HANDLER TO OBSERVE AND TEACH RELATED TO ALTERED RESPIRATORY STATUS TO MINIMIZE COMPLICATIONS AND REDUCE HOSPITALIZATION.] Future Scheduled Test OXYGEN THE RAPY; RN/SENIOR MANUFACTURING SUPERVISOR/SEASONAL PACKAGE HANDLER TO INSTRUCT ON OXYGEN MANAGEMENT INCLUDING: ADMINISTRATION AT 1L/MIN VIA NASAL CANNULA CONTINUOUS, CARE OF EQUIPMENT AND SAFETY. [code = OXYGEN THERAPY; RN/SENIOR MANUFACTURING SUPERVISOR/SEASONAL PACKAGE HANDLER TO INSTRUCT ON OXYGEN MANAGEMENT INCLUDING: ADMINISTRATION AT 1L/MIN VIA NASAL CANNULA CONTINUOUS, CARE OF EQUIPMENT AND SAFETY.] Future Scheduled Test PAIN MANAG EMENT; RN TO ASSESS AND TEACH, SEASONAL PACKAGE HANDLER/SENIOR MANUFACTURING SUPERVISOR TO OBSERVE AND TEACH AND PROVIDE EDUCATION ON PAIN MANAGEMENT TECHNIQUES. [code = PAIN MANAGEMENT; RN TO ASSESS AND TEACH, SEASONAL PACKAGE HANDLER/SENIOR MANUFACTURING SUPERVISOR TO OBSERVE AND TEACH AND PROVIDE EDUCATION ON PAIN MANAGEMENT TECHNIQUES.] Future Scheduled Test MEDICATION MANAGEMENT; RN/SENIOR MANUFACTURING SUPERVISOR/SEASONAL PACKAGE HANDLER TO REVIEW MEDICATIONS FOR INTERACTIONS, EFFECTIVENESS OF DRUG THERAPY, AND SIGNS/SYMPTOMS OF ADVERSE REACTIONS. MAY INSTRUCT AND REINFORCE MEDICATION TEACHING RELATED TO THE USE OF MEDICATIONS, DOSAGE, FREQUENCY, PURPOSE, SIDE EFFECTS, AND TO REPORT COMPLICATIONS. [code = MEDICATION MANAGEMENT; RN/SENIOR MANUFACTURING SUPERVISOR/SEASONAL PACKAGE HANDLER TO REVIEW MEDICATIONS FOR INTERACTIONS, EFFECTIVENESS OF DRUG THERAPY, AND SIGNS/SYMPTOMS OF ADVERSE REACTIONS. MAY INSTRUCT AND REINFORCE MEDICATION TEACHING RELATED TO THE USE OF MEDICATIONS, DOSAGE, FREQUENCY, PURPOSE, SIDE EFFECTS, AND TO REPORT COMPLICATIONS.] Future Scheduled Test FALL REDUC TION MANAGEMENT; RN TO ASSESS AND OBSERVE, SENIOR MANUFACTURING SUPERVISOR/SEASONAL PACKAGE HANDLER TO OBSERVE FALL RISK FACTORS AND EDUCATE PATIENT/CAREGIVER ON STRATEGIES TO MINIMIZE THE RISK OF FALLING. [code = FALL REDUCTION MANAGEMENT; RN TO ASSESS AND OBSERVE, SENIOR MANUFACTURING SUPERVISOR/SEASONAL PACKAGE HANDLER TO OBSERVE FALL RISK FACTORS AND EDUCATE [...] 06/07/25 AND HAS A FOLLOW UP WITH DIRECTOR OF WOMEN'S SERVICES DR. SHEEHAN ON 06/10/25 FOR RESULTS. </paragraph><paragraph></paragraph><paragraph>VITAL [...] SAFELY LEAVE HOME. PATIENT CONTINUES TO REQUIRE PRISON SERVICES FOR MONITORING OF CARDIOVASCULAR AND PULMONARY STATUS.</paragraph> Encounters Start Date/Time End Date/Time Encounter Type Admission Type Attending [facility] Care Department Encounter ID Discharge Date Discharge Status Discharge Condition Discharge Reason Percent Goals Met 2025-05-05 00:00:00 2025-07-03 00:00:00 Outpatient NEW ADMISSION [facility] [id number]
== END 2025-06-10 15:49 | disposition home or self-care (01) ==
LOC: HO.HCS 15:02
PROVIDERS: PCP Internal Medicine; Visit Provider Internal Medicine Cardiovascular Disease
DX: I48.0 Paroxysmal atrial fibrillation (principal); I50.9 Heart failure, unspecified; I25.10 Atherosclerotic heart disease of native coronary artery without angina pectoris; I39 Endocarditis and heart valve disorders in diseases classified elsewhere
CPT/HCPCS: 99215; G2211

== ENCOUNTER → 2025-06-10 15:01 | Outpatient (BNVA) | payer MEDICARE, OTHER, SELFPAY | PROVIDERS: PCP Internal Medicine; Visit Provider Internal Medicine Cardiovascular Disease | DX: I48.0 Paroxysmal atrial fibrillation (principal); I50.9 Heart failure, unspecified; I34.1 Nonrheumatic mitral (valve) prolapse; I34.0 Nonrheumatic mitral (valve) insufficiency; I25.10 Atherosclerotic heart disease of native coronary artery without angina pectoris; I11.0 Hypertensive heart disease with heart failure; Z09 Encounter for follow-up examination after completed treatment for conditions other than malignant neoplasm; Z79.01 Long term (current) use of anticoagulants; Z79.82 Long term (current) use of aspirin; Z99.81 Dependence on supplemental oxygen; Z95.5 Presence of coronary angioplasty implant and graft; Z87.891 Personal history of nicotine dependence | CPT/HCPCS: 99212 ==